=== PATIENT | female | born 1950 | race Caucasian/White ===

== ENCOUNTER 2018-01-03 12:20 | Day surgery (SDC) | payer MEDICARE, OTHER, SELFPAY ==
[2018-01-03 12:38] VITALS: BP 123/74; PULSE 105; RESP 16; TEMP 36.3; O2SAT 94; BMI 35.2
[2018-01-03 13:01] LABS: Bedside Glucose 154 mg/dL (70-110)
--- NOTE | 2018-01-03 14:37 | DCINST_ITS ---
Discharge Diet: No Restrictions Discharge Activity: Return to Normal Activity, May not drive while taking narcotic pain medications. Lifting Restrictions: no lifting with arm greater than 10 pounds for 2 weeks Call your doctor if your incision/area has: Continuous Slow Oozing, Foul Smel ling Discharge Call your doctor if you observe: Fever of 101 or Higher Additional Dressing/Incision Instructions:: Leave dressing in place. May get w et in shower. Do not soak - no tub baths/swimming Allergies/Adverse Reactions: Allergies No Known Allergies Allergy (Verified 01/02/18 10:10) Medications to take at Discharge Ascorbic Acid [Vitamin C] 1,000 mg PO DAILY 01/02/18 Cetirizine HCl [Zyrtec] 10 mg PO DAILY 01/02/18 Citalopram [Celexa] 20 mg PO DAILY 01/02/18 Cyclobenzaprine [Flexeril] 10 mg PO TID PRN PRN 01/02/18 Fluticasone 0.05% [Flonase Nasal [place]] 1 spray NASAL DAILY 01/02/18 Gabapentin [Neurontin] 300 mg PO TIDCM 01/02/18 Levothyroxine [Synthroid] 75 mcg PO DAILY 01/02/18 Metformin(XR) [Glucophage Xr] 1,000 mg PO BID 01/02/18 Mirtazapine [Remeron] 15 mg PO QHS 01/02/18 Nystatin 15 gm TP PRN PRN 01/02/18 Omeprazole 40 mg PO DAILY 01/02/18 Simvastatin [Zocor] 20 mg PO QHS 01/02/18 glipiZIDE XL [Glucotrol Xl] 20 mg PO DAILY@0800 01/02/18 Primary Care Physician: Goldy Holcomb MD [Primary Care Provider] - Test Results: Test results from this visit will be discussed in further detail at your follow- up appointment, if applicable. Please Follow Up With: Rosibel Quiroz MD - call When: to be seen in 7-10 days, please call for date and time, thank you
--- NOTE | 2018-01-03 14:38 | OP.PN_ITS ---
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 installer: NOT,JAMAR - kayla Cooper student Pre-Operative Diagnosis: metastatic gallbladder cancer, need for IV access for palliative chemotherapy Post-Operative Diagnosis: same Surgery/Procedure Performed:: placement of permanent indwelling tunnelled catheter in right internal jugular vein with subcutaneous port Description of Surgical Findings:: was able to access left subclavian vein but arbitrary location of catheter and was concerned for positioning - therefore it was removed, accessed left internal jugular vein but could not advance wire, could not access right subclavian vein, able to access right internal jugular vein without difficulty using US guidance Estimated Blood Loss: 20 ml Specimen's removed: none Type of Anesthesia:: Local MAC ASA Class: ASA3 Severe Disease - Admit VTE Documentation VTE Present on Admission: Yes VTE Mechan Device Prophylaxis: SCD's
[2018-01-03] MEDS: Cefazolin 2 GM in 0.9% Normal Saline 100 ML IV (14:40)
--- NOTE | 2018-01-03 16:01 | RAD_ITS ---
STUDY: X-RAY CHEST REASON FOR EXAM: Female, 67 years old. Post port placement TECHNIQUE: PA and lateral views of the chest. COMPARISON: None. FINDINGS: A right-sided MediPort is seen. The MediPort catheter is looped overlying the lower right cervical region with tip overlying the area of the right brachiocephalic vein. The lungs are clear and expanded. There is no demonstrated pleural abnormality. Normal size heart. Normal mediastinum and davonte. Normal visualized pulmonary arteries. Normal visualized aortic arch and descending thoracic aorta. Normal visualized thoracic spine. Normal visualized ribs, clavicles, and shoulders. There is no demonstrated abnormality of the visualized soft tissue structures of the upper abdomen. RAD/CXR for Line Placement IMPRESSION: Right-sided MediPort noted with portion of catheter looped in the lower right cervical area and tip overlying the region of the right brachiocephalic vein. There is no pneumothorax. Electronically Signed: Bonifacio Katz MD at 16:39 EDT , Service support ,
--- NOTE | 2018-01-03 16:04 | PCM.OPRPT ---
Report of Operation Date of Procedure: 01/03/18 Pre-Operative Diagnosis: metastatic gallbladder cancer, need for IV access for palliative chemotherapy Post-Operative Diagnosis: same Surgery/Procedure Performed:: placement of permanent indwelling tunnelled catheter in right internal jugular vein with subcutaneous port Description of Surgical Findings:: was able to access left subclavian vein but arbitrary location of catheter and was concerned for positioning - therefore it was removed, accessed left internal jugular vein but could not advance wire, could not access right subclavian vein, able to access right internal jugular vein without difficulty using US guidance endless track vehicle mechanic: MORGAN,JAMAR - kayla Cooper Type of Anesthesia:: Local MAC Anesthesiologist: Balbir Man Specimen's removed: none Estimated Blood Loss (mL): 20 ml Fluids Replaced: 800 ml RL Description of Procedure: After informed consent was given, the patient was brought to the operating room. Appropriate time out protocol was followed. She was then given anesthesia. The patient?s upper chest and neck were then prepped with a surgical skin preparation and sterile surgical drapes were placed. After proper landmarks were ascertained, the skin at the upper left chest area was then infiltrated with local anesthetic. A needle trocar was then inserted into the left subclavian vein and there was good aspiration of venous blood. A wire was then threaded into the needle trocar and this was visualized under fluoroscopy to ensure that the wire was in the left subclavian vein. However, the wire could not be advanced into the SVC. Therefore, under direct visualization, the wire was manipulated - it was retracted and then advanced, and then the wire could advance into the SVC. Once this was done, then the needle trocar was removed. A small skin osmin was made with an 11 blade knife at the wire entrance site. The dilator with the introducer sheath attached was then placed over the wire into the left subclavian vein via the Seldinger technique and this was visualized under fluoroscopy. The dilator and sheath were in proper position as visualized by fluoroscopy. However, the catheter could not be advanced into the subclavian properly. Therefore the entire apparatus was removed and pressure applied to the right subclavian vein entrance site. The left internal jugular vein was then attempted to be accessed. After proper landmarks were ascertained, the skin at the upper left neck area was infiltrated with local anesthetic. The US transducer probe was then brought and placed on the patient's neck to identify the internal jugular vein. It was identified. A needle trocar was then inserted into the left internal jugular vein and there was good aspiration of venous blood. A wire was then threaded into the needle trocar and this was visualized under fluoroscopy to ensure that the wire was entering the left internal jugular vein properly. Once this was done, then the needle trocar was removed. A small skin osmin was made with an 11 blade knife at the wire entrance site. The dilator with the introducer sheath attached was then placed over the wire into the left IJ vein via the Seldinger technique and this was visualized under fluoroscopy. The dilator and sheath were in proper position as visualized by fluoroscopy. The wire and dilator were then removed. The catheter was then threaded into the sheath. This was visualized under fluoroscopy. However, advancing it to the center of the chest area, revealed on fluoroscopy that the position was not normal. Therefore because of this, the entire apparatus was removed. Pressure was applied to the left neck for hemostasis. US transducer examination of this area revealed no extravasation of blood. The right subclavian vein was then attempted to be accessed. After proper landmarks were ascertained, the skin at the upper right chest area was then infiltrated with local anesthetic. A needle trocar was then inserted into the right subclavian vein and there was good aspiration of venous blood. A wire was then threaded into the needle trocar and this was visualized under fluoroscopy to ensure that the wire was in the right subclavian vein. However, under fluoroscopy, the wire could not be advanced into the SVC, despite multiple attempts at manipulation. Therefore the wire and needle trocar were withdrawn and pressure was applied to the right subclavian entrance site. The right internal jugular vein was then attempted to be accessed. After proper landmarks were ascertained, the skin at the upper right neck area was infiltrated with local anesthetic. The US transducer probe was then brought and placed on the patient's neck to identify the internal jugular vein. It was identified. A needle trocar was then inserted into the left subclavian vein and there was good aspiration of venous blood. A wire was then threaded into the needle trocar and this was visualized under fluoroscopy to ensure that the wire was in the right internal jugular vein. Once this was done, then the needle trocar was removed. A small skin osmin was made with an 11 blade knife at the wire entrance site. The dilator with the introducer sheath attached was then placed over the wire into the right IJ vein via the Seldinger technique and this was visualized under fluoroscopy. The dilator and sheath were in proper position as visualized by fluoroscopy. The wire and dilator were then removed. The catheter was then threaded into the introducer sheath and was positioned with its tip at the junction of the superior vena cava and the right atrium as visualized under fluoroscopy. The catheter was flushed with a heparin saline mixture prior to placement. A subcutaneous pocket was then created caudad to the catheter insertion site. A transverse skin incision was made after the skin and subcutaneous tissues were infiltrated with local anesthetic. Blunt dissection was then used to create a space large enough for placement of the subcutaneous port. Hemostasis was carefully controlled with electrocautery. The port was sutured to the subcutaneous fascia using vicryl suture at three sites. The catheter was then tunneled into the subcutaneous pocket. The excess catheter was transected. The catheter was then attached to the subcutaneous port using it director?s guidelines. The port was then placed in the subcutaneous pocket and the sutures were ligated. The subdermal incisional sites were reapproximated with interrupted vicryl suture. The skin was reapproximated with monocryl suture in a subcuticular fashion. Cavilon and steristrips were used for reinforcement of the skin closure and a sterile opsite dressing was applied. The patient was brought to the Recovery Room in stable condition. Grafts/Implants Used: PowerPort MRI implantable lot [id number], expiration date 2019-08-23 - Complications none noted - Admit VTE Documentation VTE Present on Admission: Yes VTE Mechan Device Prophylaxis: SCD's
--- NOTE | 2018-01-03 16:09 | OP.PCM_ITS ---
Report of Operation Date of Procedure: 01/03/18 Pre-Operative Diagnosis: metastatic gallbladder cancer, need for IV access for palliative chemotherapy Post-Operative Diagnosis: same Surgery/Procedure Performed:: placement of permanent indwelling tunnelled catheter in right internal jugular vein with subcutaneous port Description of Surgical Findings:: was able to access left subclavian vein but arbitrary location of catheter and was concerned for positioning - therefore it was removed, accessed left internal jugular vein but could not advance wire, could not access right subclavian vein, able to access right internal jugular vein without difficulty using US guidance software client architect: MORGAN,JAMAR - kayla Cooper Type of Anesthesia:: Local MAC Anesthesiologist: Balbir Man Specimen's removed: none Estimated Blood Loss (mL): 20 ml Fluids Replaced: 800 ml RL Description of Procedure: After informed consent was given, the patient was brought to the operating room. Appropriate time out protocol was followed. She was then given anesthesia. The patient?s upper chest and neck were then prepped with a surgical skin preparation and sterile surgical drapes were placed. After proper landmarks were ascertained, the skin at the upper left chest area w as then infiltrated with local anesthetic. A needle trocar was then inserted into the left subclavian vein and there was good aspiration of venous blood. A wire was then threaded into the needle trocar and this was visualized under fluoroscopy to ensure that the wire was in the left subclavian vein. However, the wire could not be advanced into the SVC. Therefore, under direct visualization, the wire was manipulated - it was retracted and then advanced, and then the wire could advance into the SVC. Once this was done, then the needle trocar was removed. A small skin osmin was made with an 11 blade knife at the wire entrance site. The dilator with the introducer sheath attached was then placed over the wire into the left subclavian vein via the Seldinger technique and this was visualized under fluoroscopy. The dilator and sheath were in proper position as visualized by fluoroscopy. However, the catheter could not be advanced into the subclavian properly. Therefore the entire zandra aratus was removed and pressure applied to the right subclavian vein entrance site. The left internal jugular vein was then attempted to be accessed. After proper landmarks were ascertained, the skin at the upper left neck area was infiltrated with local anesthetic. The US transducer probe was then brought and placed on the patient's neck to identify the internal jugular vein. It was identified. A needle trocar was then inserted into the left internal jugular vein and there was good aspiration of venous blood. A wire was then threaded into the needle trocar and this was visualized under fluoroscopy to ensure that the wire was entering the left internal jugular vein properly. Once this was done, then the needle trocar was removed. A small skin osmin was made with an 11 blade knife at the wire entrance site. The dilator with the introducer sheath attached was then placed over the wire into the left IJ vein via the Seldinger technique and this was visualized under fluoroscopy. The dilator and sheath were in proper position as visualized by fluoroscopy. The wire and dilator were then removed. The catheter was then threaded into the sheath. This was visualized under fluoroscopy. However, advancing it to the center of the chest area, revealed on fluoroscopy that the position was not normal. Therefore because of this, the entire apparatus was removed. Pressure was applied to the left neck for hemostasis. US transducer examination of this area revealed no extravasation of blood. The right subclavian vein was then attempted to be accessed. After proper landmarks were ascertained, the skin at the upper right chest area was then infiltrated with local anesthetic. A needle trocar was then inserted into the right subclavian vein and there was good aspiration of venous blood. A wire was then threaded into the needle trocar and this was visualized under fluoroscopy to ensure that the wire was in the right subclavian vein. However, under fluoroscopy, the wire could not be advanced into the SVC, despite multiple attempts at manipulation. Therefore the wire and needle trocar were withdrawn and pressure was applied to the right subclavian entrance site. The right internal jugular vein was then attempted to be accessed. After proper landmarks were ascertained, the skin at the upper right neck area was infiltrated with local anesthetic. The US transducer probe was then brought and placed on the patient's neck to identify the internal jugular vein. It was identified. A needle trocar was then inserted into the left subclavian vein and there was good aspiration of venous blood. A wire was then threaded into the needle trocar and this was visualized under fluoroscopy to ensure that the wire was in the right internal jugular vein. Once this was done, then the needle trocar was removed. A small skin osmin was made with an 11 blade knife at the wire entrance site. The dilator with the introducer sheath attached was then placed over the wire into the right IJ vein via the Seldinger technique and this was visualized under fluoroscopy. The dilator and sheath were in proper position as visualized by fluoroscopy. The wire and dilator were then removed. The catheter was then threaded into the introducer sheath and was positioned with its tip at the junction of the superior vena cava and the right atrium as visualized under fluoroscopy. The catheter was flushed with a heparin saline mixture prior to placement. A subcutaneous pocket was then created caudad to the catheter insertion site. A transverse skin incision was made after the skin and subcutaneous tissues were infiltrated with local anesthetic. Blunt dissection was then used to create a space large enough for placement of the subcutaneous port. Hemostasis was carefully controlled with electrocautery. The port was sutured to the subcutaneous fascia using vicryl suture at three sites. The catheter was then tunneled into the subcutaneous pocket. The excess catheter was transected. The catheter was then attached to the subcutaneous port using tallow pumper?s guidelines. The port was then placed in the subcutaneous pocket and the sutures were ligated. The subdermal incisional sites were reapproximated with interrupted vicryl suture. The skin was reapproximated with monocryl suture in a subcuticular fashion. Cavilon and steristrips were used for reinforcement of the skin closure and a sterile opsite dressing was applied. The patient was brought to the Recovery Room in stable condition. Grafts/Implants Used: PowerPort MRI implantable lot [id number], expiration date 2019-08-23 - Complications none noted - Admit VTE Documentation VTE Present on Admission: Yes VTE Mechan Device Prophylaxis: SCD's
[2018-01-03 16:15] VITALS: BP 102/65; BP 123/74; PULSE 114; RESP 16; TEMP 36.6; O2SAT 96
[2018-01-03 16:20] VITALS: BP 123/74; BP 93/56; PULSE 113; RESP 16; O2SAT 96
[2018-01-03 16:25] VITALS: BP 123/74; BP 99/63; PULSE 111; RESP 16; O2SAT 95
[2018-01-03 16:30] VITALS: BP 104/73; BP 123/74; PULSE 109; RESP 16; TEMP 36.8; O2SAT 94
[2018-01-03 16:54] VITALS: BP 123/74
== END 2018-01-03 17:10 | disposition home or self-care (01) ==
LOC: SDC 12:22 → AC 12:24
PROVIDERS: Family Provider Family Medicine; PCP Family Medicine; Referring Provider Surgery; Visit Provider Surgery
PROC: (CPT 36563; principal; 2018-01-03 13:40)
DX: Z45.2 Encounter for adjustment and management of vascular access device (principal); C23 Malignant neoplasm of gallbladder; E66.09 Other obesity due to excess calories; Z68.35 Body mass index [BMI] 35.0-35.9, adult; E11.21 Type 2 diabetes mellitus with diabetic nephropathy; E11.42 Type 2 diabetes mellitus with diabetic polyneuropathy; E78.5 Hyperlipidemia, unspecified; I10 Essential (primary) hypertension; E03.9 Hypothyroidism, unspecified; G47.33 Obstructive sleep apnea (adult) (pediatric)
CPT/HCPCS: 36563; 71045; 77001; 82962; J7050; J7120; C1788

== ENCOUNTER 2018-02-15 12:13 | Inpatient (IN) | payer MEDICARE, OTHER, SELFPAY ==
[2018-02-15] VITALS (19 sets, daily range): BP systolic 75–131; BP diastolic 42–75; PULSE 86–118; RESP 16–30; TEMP 36.1–39.8; O2SAT 88–98; BMI 33.0; BMI 32.1
--- NOTE | 2018-02-15 12:37 | EKG12_ITS ---
Test Reason : WEAKNESS Blood Pressure : / mmHG Vent. Rate : 113 BPM Atrial Rate : 113 BPM P-R Int : 096 ms QRS Dur : 068 ms QT Int : 350 ms P-R-T Axes : 003 -03 050 degrees QTc Int : 480 ms Sinus tachycardia with short AK Nonspecific ST abnormality Abnormal ECG Confirmed by JAJA CAMARILLO, STACEY ([id number]), graphics editor CAROL DOWLING ([id number]) on 02/17/2018 2:14:38 PM Referred By: DORIS Confirmed By:STACEY WILKINSON MD
--- NOTE | 2018-02-15 12:50 | RAD_ITS ---
STUDY: X-RAY CHEST REASON FOR EXAM: Female, 68 years old. Tachypnea and weakness. TECHNIQUE: Single AP portable view of the chest. COMPARISON: 01/03/2018. FINDINGS: There is a right-sided Port-A-Cath in stable position. There are hypoventilatory changes. There are prominent markings bilaterally which could reflect pulmonary venous congestion. No focal infiltrate is seen. There is no demonstrated pleural abnormality. There is borderline cardiomegaly. Normal mediastinum and davonte. Normal visualized pulmonary arteries. There is atherosclerotic tortuosity of the aortic arch and descending thoracic aorta. The thoracic spine is obscured. Normal visualized ribs, clavicles, and shoulders. There is no demonstrated abnormality of the visualized soft tissue structures of the upper abdomen. RAD/Chest 1 View (Portable) IMPRESSION: Prominent markings which could be due to pulmonary venous congestion. Hypoventilatory changes. Electronically Signed: Kanu Martinez MD at 13:20 EST Tel , Service support ,
[2018-02-15 13:07] LABS: Absolute Lymphocyte Count 0.25 X10^3/ul (0.83-4.51); Hematocrit 32.5 % (37-47); Hemoglobin 10.6 g/dl (12.0-15.0); Lymphocyte # 0.25 X10^3/ul (4.0); Lymphocyte % 18.5 % (19-41); Mean Corp Hgb Conc 32.6 g/gl (32-36); Mean Corpuscular Hgb 28.5 pg (27.0-32.0); Mean Corpuscular Volume 87.4 fL (81-99); Mean Platelet Vol. 10.1 fl (6.2-12.0); Monocyte# 0.07 X10^3/uL; Monocyte% 5.2 % (0-10); Neutrophil # 1.02 X10^3/uL (2.7-7.7); Neutrophil % 75.6 % (47-70); Platelet Count 117 K/mm3 (150-450); RBC Distribution Width CV 17.9 % (11.6-14.6); RBC Distribution Width SD 56.6 fl (35.1-43.9); Red Blood Count 3.72 M/mm3 (4.2-5.4)
[2018-02-15 13:09] LABS: Differential Indicated SCAN CRITERIA MET; POSITIVE COUNT YES; POSITIVE DIFFERENTIAL YES; POSITIVE MORPHOLOGY NO; White Blood Count 1.4 K/mm3 (4.4-11.0)
--- NOTE | 2018-02-15 13:09 | ED.RN ---
LAB CALLED WBC OF 1.4 AWARE
[2018-02-15 13:13] LABS: International Normalized Ratio 1.4; Prothrombin Time (Protime)PT. 17.5 SECONDS (11.7-14.9)
[2018-02-15 13:14] LABS: Partial Thromboplast Time 34.7 Seconds (24.1-36.2)
[2018-02-15] MEDS: 0.9% Normal Saline 1,000 ML IV.SOLN. 1000 ML IV (13:19)
[2018-02-15 13:21] LABS: ALB/GLOB Ratio 0.3 RATIO (0.9-2.4); AST(SGOT) 142 U/L (15-37); Alanine Aminotransfer ALT/SGPT 55 U/L (13-56); Albumin, Serum 1.5 g/dL (3.2-5.0); Alkaline Phosphatase 387 U/L (45-117); Anion Gap 14 (5-15); BUN 21 mg/dL (7-18); Calcium,Total 7.8 mg/dL (8.5-10.1); Chloride 96 mmol/L (98-107); Creatinine, Serum 0.92 mg/dL (0.55-1.02); EST Glomerular Filtration Rate 65 mL/min (>60); Est Glom Filt Rate - Afr Amer 78 mL/min (>60); Estimated Creatinine Clearance 43.55 ml/min; Globulin 5.1 g/dL (2.2-4.2); Glucose 110 mg/dL (74-106); Potassium 3.7 mmol/L (3.5-5.1); Protein, Total 6.6 g/dL (6.4-8.2); Sodium Level 131 mmol/L (136-145)
[2018-02-15 13:24] LABS: Mucous, Urine 0 SEEN /hpf (<or=2+); Red Blood Cells-Urine 0 SEEN /hpf (0-5)
[2018-02-15 13:26] LABS: Color, Urine Yellow (Yellow); Glucose, Dipstick Normal (Normal); Ketone-Dipstick Negative (Negative); Leukocyte Esterase-Dipstick 25 /ul (Negative); Nitrite-Dipstick Negative (Negative); Occult Blood-Urine 10 /ul (Negative); Protein-Dipstick 30 mg/dl (Negative); Urine Clarity Sl. Cloudy (Clear); Urine Urobilinogen 4 mg/dl (Normal)
[2018-02-15 13:28] LABS: Differential Comment SCANNED
[2018-02-15 13:29] LABS: Urine Bilirubin Dipstick 3 mg/dL (Negative)
[2018-02-15 13:32] LABS: Lactic Acid 3.6 mmol/L (0.4-2.0)
[2018-02-15 13:34] LABS: Amorphous Sediment 1+; Bacteria RARE /hpf (None Seen); Squamous Epithelial Cells - UA 0-5 SEEN /hpf (5-10); White Blood Cells 0-5 SEEN /hpf (0-5)
--- NOTE | 2018-02-15 13:49 | CT_ITS ---
STUDY: CTA CHEST REASON FOR EXAM: Female, 68 years old. Shortness of breath, tachycardia and weakness. History of hypertension and diabetes. RADIATION DOSAGE (If Supplied By Facility): CTDIvol = ( 15.84 ) mGy, DLP = ( 562.57 ) mGycm TECHNIQUE: The examination was performed with the intravenous administration of 100mL ml of Isovue 370 contrast material. Post-processing of the angiographic images was performed, with multiplanar reformation. Individualized dose optimization techniques were used for this CT. COMPARISON: None. FINDINGS: There is limited enhancement of the main pulmonary artery and right and left pulmonary arteries. There is very limited evaluation of the bilateral peripheral pulmonary arteries due to significant artifacts. There is filling defect in the proximal right lower lobe pulmonary artery which could be due to artifact. Pulmonary embolism cannot be excluded. Small filling defects are also seen in the proximal branches of the left lower lobe pulmonary artery. There is atherosclerotic tortuosity of the aortic arch and descending thoracic aorta. There is no demonstrated aortic dissection. Normal heart and pericardium. There are multiple nodes in the anterior mediastinum and aortopulmonic window, the largest measures about 1.3 cm. Normal hilar regions. Normal visualized trachea and bronchi. The lungs are well expanded. There is prominence of the pulmonary vasculature. There are fibrotic changes in the peripheral aspect of the lungs. There are no pleural effusions. Normal chest wall structures. There are degenerative changes of thoracic spine. The visualized portions of the upper abdomen demonstrate fatty infiltration of the liver. There is a partially visualized irregular collection in the anterior segment of the right lobe of the liver measuring about 4 cm. Could represent air within the liver or partial volume of the adjacent bowel. CT scan of the abdomen is recommended. CT/CTA Chest W/WO Contrast IMPRESSION: 1. Markedly limited examination due to significant artifacts. 2. Questionable filling defects in the right lower lobe and proximal branches of the lower lobes pulmonary arteries. Pulmonary embolism cannot be entirely excluded. 3. Pulmonary venous congestion. 4. Partially visualized air collection in the right lobe of the liver which could be within the liver or partial volume of the adjacent bowel. CT scan of the abdomen is recommended. N.B. : The above information has been verbally conveyed by Kanu Martinez MD to Dr. Carlos Mattson MD, on 02/15/2018 15:33:45 (ET). Electronically Signed: Kanu Martinez MD at 15:25 EST Tel , Service support ,
--- NOTE | 2018-02-15 14:56 | ED.VISSUMM ---
- ER Visit Summary Date of Service: 02/15/18 Chief Complaint: Weakness. History of Present Illness: The patient is a 68 F who presents with weakness. She had chemotherapy 2 weeks ago for gallbladder cancer. She had chills but no reported fevers. She was hypoxic upon presentation and was placed on oxygen prior to me seeing her. She denies any abdominal pain, rash or any other symptoms. Physical Examination: Patient appears chronically ill, is awake and alert Dry mucous membranes, no obvious facial deformity No C-spine tenderness supple neck. Regular rate and rhythm without any obvious murmurs. She has a right-sided chest wall Mediport which is accessed Course lungs bilaterally speaking in full sentences does not appear in any significant respiratory distress Abdomen soft and nontender no guarding or rebound Moves all extremities without any difficulty or pain. Skin does not show any obvious rashes or lesions, no trauma. Slightly somnolent but easily arousable, she is oriented ?3 with no gross focal deficit Emergency Department Course and Treatment: Patient did not have a fever initially. She she had a negative chest x-ray, however she was tachycardic and hypoxic I sent her for a PE study. While in CT she developed a fever. I treated her with meropenem for neutropenic fever. She received IV fluids and will be admitted. Patient was discussed with oncology and the medical team. Disposition: Admit to the hospital in guarded condition Impression: Neutropenic fever Sepsis secondary to presumed pneumonia This note was generated with [employer] dictation software. It may contain incorrect words, spelling, and punctuation that were not noted in review of the chart prior to signing ED Disposition - Plan for ED Patient: Chief Complaint: Weakness Referrals: Goldy Holcomb MD [Primary Care Provider] -
--- NOTE | 2018-02-15 15:06 | PCM.HP.STD ---
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 She is currently undergoing palliative chemotherapy due to metastatic gallbladder cancer. Patient lethargic on assessment. Daughter at bedside. Daughter states patient has reported intermittent loose stools over the past week and a half with intermittent nausea. Patient denies urinary symptoms. Denies abdominal pain. Denies cough. Denies exposure to sick contacts. She reports ongoing weight loss. Patient follows with Dr. Ruiz, oncology. She has a past medical history of metastatic gallbladder cancer, type 2 diabetes mellitus, hypertension, hyperlipidemia, hypothyroidism, obstructive sleep apnea, depression, GERD. Past Medical History Past Medical History (Chronic Problems): Chronic Problems Metastasis from gallbladder cancer (Chronic) Type 2 diabetes mellitus (Chronic) Hyperlipidemia (Chronic) Hypertension (Chronic) Hypothyroidism (Chronic) MARIE (obstructive sleep apnea) (Chronic) Allergies No Known Allergies Allergy (Verified 01/02/18 10:10) Home Medications: Ambulatory Orders Medication Instructions Recorded Ascorbic Acid [Vitamin C] 1,000 mg PO DAILY 01/02/18 Cetirizine HCl [Zyrtec] 10 mg PO DAILY 01/02/18 Citalopram [Celexa] 20 mg PO DAILY 01/02/18 Fluticasone 0.05% [Flonase Nasal 1 spray NASAL DAILY 01/02/18 [place]] Gabapentin [Neurontin] 300 mg PO TIDCM 01/02/18 Levothyroxine [Synthroid] 75 mcg PO DAILY 01/02/18 Metformin(XR) [Glucophage Xr] 1,000 mg PO BID 01/02/18 Omeprazole 40 mg PO DAILY 01/02/18 glipiZIDE XL [Glucotrol Xl] 20 mg PO DAILY@0800 01/02/18 Ondansetron HCl [Zofran] 4 mg PO DAILY 02/15/18 Surgical History: appendectomy, - - Right chest port. 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 Denies: Abdominal Pain, Vomiting Genitourinary: Denies: Dysuria, Frequency, Incontinence Musculoskeletal: Denies: Joint Pain, Joint Tenderness Skin: Reports: Jaundice. Denies: Rash, Wounds Neurological: Denies: Numbness, Tingling, Focal weakness Psychiatric: Reports: Depression Hematologic/ Lymphatic: Denies: Easy Bruising, Easy Bleeding VTE Information - Inpt Only VTE Present on Admission: No VTE Mechan Device Prophylaxis: None VTE Pharm Prophylaxis ordered?: Yes - Physical Exam General: No apparent distress, Lethargic, - - Jaundice appearing. HEENT: Atraumatic, PERRLA, EOMI, Normocephalic Oral: Dry Mucosa Neck: Supple, No JVD, Negative Carotid Bruits Lungs: Clear to auscultation, Normal air movement Cardiovascular: Regular Rhythm, Normal S1, Normal S2, No murmurs, Tachycardic Abdomen: Bowel Sounds Present, Soft, Non Tender, Non-Distended Extremities: No clubbing, No edema, Capillary Refill Less than 3 Seconds Skin: No rashes, No breakdown Musculoskeletal: No Tenderness to Palpation of Joints or Extremities Neurological: Cranial nerves II-XII grossly intact, Neuro grossly intact Psych/Mental Status: Flat Affect Vital Signs Temp Pulse Resp BP Pulse Ox 102.8 F H 109 H 30 H 120/72 96 02/15/18 15:00 02/15/18 15:00 02/15/18 15:00 02/15/18 15:00 02/15/18 15:00 Oxygen Flow Rate (L/min) 2 Oxygen Delivery Method Nasal Cannula Weight: 174 lb 13.225 oz Body Mass Index (BMI) 33.0 Laboratory Tests Past 24 Hrs 02/15/18 02/15/18 02/15/18 12:55 12:55 12:55 WBC 1.4 L* RBC 3.72 L Hgb 10.6 L Hct 32.5 L MCV 87.4 MCH 28.5 MCHC 32.6 RDW 17.9 H RDW Differential 56.6 H Plt Count 117 L MPV 10.1 Immature Gran % (Auto) 0.700 Neut % (Auto) 75.6 H Lymph % (Auto) 18.5 L [place] % (Auto) 5.2 Eos % (Auto) 0.0 Baso % (Auto) 0.0 Absolute Neuts (auto) 1.0 L Absolute Lymphs (auto) 0.25 L Total Counted Not Reportable Differential Comment SCANNED Diff Path Review July foll PT 17.5 H INR 1.4 APTT 34.7 Sodium 131 L Potassium 3.7 Chloride 96 L Carbon Dioxide 21.0 Anion Gap 14 BUN 21 H Creatinine 0.92 Estim Creat Clear Calc 43.55 Est GFR (MDRD) Af Amer 78 Est GFR (MDRD) Non-Af 65 BUN/Creatinine Ratio 23.0 H Glucose 110 H Lactic Acid Calcium 7.8 L Total Bilirubin 3.80 H AST 142 H ALT 55 Alkaline Phosphatase 387 H Total Protein 6.6 Albumin 1.5 L Globulin 5.1 H Albumin/Globulin Ratio 0.3 L Urine Color Urine Clarity Urine pH Ur Specific [place] Urine Protein Urine Glucose (UA) Urine Ketones Urine Occult Blood Urine Nitrite Urine Bilirubin Urine Urobilinogen Ur Leukocyte Esterase Urine RBC Urine WBC Ur Squamous Epith Cells Amorphous Sediment Urine Bacteria Urine Mucus 02/15/18 02/15/18 12:55 13:15 WBC RBC Hgb Hct MCV MCH MCHC RDW RDW Differential Plt Count MPV Immature Gran % (Auto) Neut % (Auto) Lymph % (Auto) [place] % (Auto) Eos % (Auto) Baso % (Auto) Absolute Neuts (auto) Absolute Lymphs (auto) Total Counted Differential Comment Diff Path Review PT INR APTT Sodium Potassium Chloride Carbon Dioxide Anion Gap BUN Creatinine Estim Creat Clear Calc Est GFR (MDRD) Af Amer Est GFR (MDRD) Non-Af BUN/Creatinine Ratio Glucose Lactic Acid 3.6 H Calcium Total Bilirubin AST ALT Alkaline Phosphatase Total Protein Albumin Globulin Albumin/Globulin Ratio Urine Color Yellow Urine Clarity Sl. Cloudy Urine pH 6.0 Ur Specific [place] 1.010 Urine Protein 30 H Urine Glucose (UA) Normal Urine Ketones Negative Urine Occult Blood 10 H Urine Nitrite Negative Urine Bilirubin 3 H Urine Urobilinogen 4 H Ur Leukocyte Esterase 25 H Urine RBC 0 SEEN Urine WBC 0-5 SEEN Ur Squamous Epith Cells 0-5 SEEN Amorphous Sediment 1+ Urine Bacteria RARE Urine Mucus 0 SEEN Assessment/Plan 1. Neutropenic fever, etiology unclear- UA unremarkable. CXR without evidence of infiltrate. CT chest shows air collection in the right lobe of the liver, pulmonary embolism cannot be excluded. Dr. Nascimento consulted, oncology. Will begin granix daily until WBC improves. IV meropenem empirically. Obtain CT of abdomen. 2. Lactic acidosis-3.6 on admission. IVF per protocol. No clear source of infectious etiology. Repeat lactic acid. 3. Questionable PE? CT of chest shows questionable filling defects in the right lower lobe and proximal branches of the lower lobes pulmonary arteries, pulmonary embolism cannot be entirely excluded. Begin therapeutic Lovenox. Request additional read of CT of chest. 4. Metastatic gallbladder cancer-undergoing palliative chemotherapy. Follows with Dr. Ruiz. 5. Type 2 diabetes mellitus- continue glipizide, hold metformin. Accucheck ACHS with SSI. 6. Hypertension- no longer on regimen. 7. Hyperlipidemia- no longer on statin. 8. Hypothyroidism- continue Synthroid regimen. 9. Obstructive sleep apnea 10. Depression-continue home Celexa regimen. 11. GERD- continue PPI. DVT prophylaxis- Lovenox sc. This patient was seen by JOSE ARMANDO Dobbins under the supervision of Dr. Fong.
--- NOTE | 2018-02-15 15:10 | HP.PCM_ITS ---
Addendum entered and electronically signed by JOSE ARMANDO Dobbins 02/15/18 17:36: Code Visit Over-read on CT chest reported to be negative for PE. MERY Mcdaniels. 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 She is currently undergoing palliative chemotherapy due to metastatic gallbladder cancer. Patient lethargic on assessment. Daughter at bedside. Daughter states patient has reported intermittent loose stools over the past week and a half with intermittent nausea. Patient denies urinary symptoms. Denies abdominal pain. Denies cough. Denies exposure to sick contacts. She reports ongoing weight loss. Patient follows with Dr. Ruiz, oncology. She has a past medical history of metastatic gallbladder cancer, type 2 diabetes mellitus, hypertension, hyperlipidemia, hypothyroidism, obstructive sleep apnea, depression, GERD. Past Medical History Past Medical History (Chronic Problems): Chronic Problems Metastasis from gallbladder cancer (Chronic) Type 2 diabetes mellitus (Chronic) Hyperlipidemia (Chronic) Hypertension (Chronic) Hypothyroidism (Chronic) MARIE (obstructive sleep apnea) (Chronic) Allergies No Known Allergies Allergy (Verified 01/02/18 10:10) Home Medications: Ambulatory Orders Medication Instructions Recorded Ascorbic Acid [Vitamin C] 1,000 mg PO DAILY 01/02/18 Cetirizine HCl [Zyrtec] 10 mg PO DAILY 01/02/18 Citalopram [Celexa] 20 mg PO DAILY 01/02/18 Fluticasone 0.05% [Flonase Nasal 1 spray NASAL DAILY 01/02/18 [place]] Gabapentin [Neurontin] 300 mg PO TIDCM 01/02/18 Levothyroxine [Synthroid] 75 mcg PO DAILY 01/02/18 Metformin(XR) [Glucophage Xr] 1,000 mg PO BID 01/02/18 Omeprazole 40 mg PO DAILY 01/02/18 glipiZIDE XL [Glucotrol Xl] 20 mg PO DAILY@0800 01/02/18 Ondansetron HCl [Zofran] 4 mg PO DAILY 02/15/18 Surgical History: appendectomy, - - Right chest port. 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 Denies: Abdominal Pain, Vomiting Genitourinary: Denies: Dysuria, Frequency, Incontinence Musculoskeletal: Denies: Joint Pain, Joint Tenderness Skin: Reports: Jaundice. Denies: Rash, Wounds Neurological: Denies: Numbness, Tingling, Focal weakness Psychiatric: Reports: Depression Hematologic/ Lymphatic: Denies: Easy Bruising, Easy Bleeding VTE Information - Inpt Only VTE Present on Admission: No VTE Mechan Device Prophylaxis: None VTE Pharm Prophylaxis ordered?: Yes - Physical Exam General: No apparent distress, Lethargic, - - Jaundice appearing. HEENT: Atraumatic, PERRLA, EOMI, Normocephalic Oral: Dry Mucosa Neck: Supple, No JVD, Negative Carotid Bruits Lungs: Clear to auscultation, Normal air movement Cardiovascular: Regular Rhythm, Normal S1, Normal S2, No murmurs, Tachycardic Abdomen: Bowel Sounds Present, Soft, Non Tender, Non-Distended Extremities: No clubbing, No edema, Capillary Refill Less than 3 Seconds Skin: No rashes, No breakdown Musculoskeletal: No Tenderness to Palpation of Joints or Extremities Neurological: Cranial nerves II-XII grossly intact, Neuro grossly intact Psych/Mental Status: Flat Affect Vital Signs Temp Pulse Resp BP Pulse Ox 102.8 F H 109 H 30 H 120/72 96 02/15/18 15:00 02/15/18 15:00 02/15/18 15:00 02/15/18 15:00 02/15/18 15:00 Oxygen Flow Rate (L/min) 2 Oxygen Delivery Method Nasal Cannula Weight: 174 lb 13.225 oz Body Mass Index (BMI) 33.0 Laboratory Tests Past 24 Hrs 11/24/18 11/24/18 11/24/18 12:55 12:55 12:55 WBC 1.4 L* RBC 3.72 L Hgb 10.6 L Hct 32.5 L MCV 87.4 MCH 28.5 MCHC 32.6 RDW 17.9 H RDW Differential 56.6 H Plt Count 117 L MPV 10.1 Immature Gran % (Auto) 0.700 Neut % (Auto) 75.6 H Lymph % (Auto) 18.5 L [place] % (Auto) 5.2 Eos % (Auto) 0.0 Baso % (Auto) 0.0 Absolute Neuts (auto) 1.0 L Absolute Lymphs (auto) 0.25 L Total Counted Not Reportable Differential Comment SCANNED Diff Path Review July foll PT 17.5 H INR 1.4 APTT 34.7 Sodium 131 L Potassium 3.7 Chloride 96 L Carbon Dioxide 21.0 Anion Gap 14 BUN 21 H Creatinine 0.92 Estim Creat Clear Calc 43.55 Est GFR (MDRD) Af Amer 78 Est GFR (MDRD) Non-Af 65 BUN/Creatinine Ratio 23.0 H Glucose 110 H Lactic Acid Calcium 7.8 L Total Bilirubin 3.80 H AST 142 H ALT 55 Alkaline Phosphatase 387 H Total Protein 6.6 Albumin 1.5 L Globulin 5.1 H Albumin/Globulin Ratio 0.3 L Urine Color Urine Clarity Urine pH Ur Specific [place] Urine Protein Urine Glucose (UA) Urine Ketones Urine Occult Blood Urine Nitrite Urine Bilirubin Urine Urobilinogen Ur Leukocyte Esterase Urine RBC Urine WBC Ur Squamous Epith Cells Amorphous Sediment Urine Bacteria Urine Mucus 02/15/18 02/15/18 12:55 13:15 WBC RBC Hgb Hct MCV MCH MCHC RDW RDW Differential Plt Count MPV Immature Gran % (Auto) Neut % (Auto) Lymph % (Auto) [place] % (Auto) Eos % (Auto) Baso % (Auto) Absolute Neuts (auto) Absolute Lymphs (auto) Total Counted Differential Comment Diff Path Review PT INR APTT Sodium Potassium Chloride Carbon Dioxide Anion Gap BUN Creatinine Estim Creat Clear Calc Est GFR (MDRD) Af Amer Est GFR (MDRD) Non-Af BUN/Creatinine Ratio Glucose Lactic Acid 3.6 H Calcium Total Bilirubin AST ALT Alkaline Phosphatase Total Protein Albumin Globulin Albumin/Globulin Ratio Urine Color Yellow Urine Clarity Sl. Cloudy Urine pH 6.0 Ur Specific [place] 1.010 Urine Protein 30 H Urine Glucose (UA) Normal Urine Ketones Negative Urine Occult Blood 10 H Urine Nitrite Negative Urine Bilirubin 3 H Urine Urobilinogen 4 H Ur Leukocyte Esterase 25 H Urine RBC 0 SEEN Urine WBC 0-5 SEEN Ur Squamous Epith Cells 0-5 SEEN Amorphous Sediment 1+ Urine Bacteria RARE Urine Mucus 0 SEEN Assessment/Plan 1. Neutropenic fever, etiology unclear- UA unremarkable. CXR without evidence of infiltrate. CT chest shows air collection in the right lobe of the liver, pulmonary embolism cannot be excluded. Dr. Nascimento consulted, oncology. Will begin granix daily until WBC improves. IV meropenem empirically. Obtain CT of abdomen. 2. Lactic acidosis-3.6 on admission. IVF per protocol. No clear source of infectious etiology. Repeat lactic acid. 3. Questionable PE? CT of chest shows questionable filling defects in the right lower lobe and proximal branches of the lower lobes pulmonary arteries, pulmonary embolism cannot be entirely excluded. Begin therapeutic Lovenox. Request additional read of CT of chest. 4. Metastatic gallbladder cancer-undergoing palliative chemotherapy. Follows with Dr. Ruiz. 5. Type 2 diabetes mellitus- continue glipizide, hold metformin. Accucheck ACHS with SSI. 6. Hypertension- no longer on regimen. 7. Hyperlipidemia- no longer on statin. 8. Hypothyroidism- continue Synthroid regimen. 9. Obstructive sleep apnea 10. Depression-continue home Celexa regimen. 11. GERD- continue PPI. DVT prophylaxis- Lovenox sc. This patient was seen by JOSE ARMANDO Dobbins under the supervision of Dr. Fong.
--- NOTE | 2018-02-15 15:13 | NURSING ---
MED SURG TERELETSKY SEPSIS, NEUTROPENIC FEVER
--- NOTE | 2018-02-15 15:39 | CT_ITS ---
STUDY: CT ABDOMEN AND PELVIS WITHOUT CONTRAST REASON FOR EXAM: Female, 68 years old. Abdominal pain. Weakness sepsis lethargy. Gas in the abdomen based on prior CT chest. History of gallbladder cancer. RADIATION DOSAGE (If Supplied By Facility): CTDIvol = ( 10.77 ) mGy, DLP = ( 578.37 ) mGycm TECHNIQUE: Transaxial images were obtained from the dome of the diaphragm to the symphysis pubis without oral contrast, and without intravenous contrast. Sagittal and coronal images were reconstructed. Individualized dose optimization techniques were used for this CT. COMPARISON: CTA chest 02/15/2018. FINDINGS: Moderate fibrotic changes are noted in the lung bases. There is decreased attenuation of the liver consistent with steatosis. No focal hepatic lesion is seen. There is non-visualization of the gallbladder, which may be secondary to either contraction or a prior cholecystectomy. Gas is identified in the gallbladder fossa. If the patient has had recent surgery, findings are compatible with postsurgical changes. Otherwise, this is suspicious for contained perforation from the hepatic flexure. There is significant hypodensity in the pancreatic head. This may represent a markedly dilated common duct, versus mass or collection. Normal spleen. Normal bilateral adrenal glands. The kidneys are unremarkable. There is retained contrast in the collecting systems from prior CT angiogram. The aorta is normal in caliber, with mild atherosclerotic calcification. There is no evidence of bowel obstruction or inflammatory change. Diverticulosis is noted, with no acute diverticulitis. There is no obvious mass. However, the possibility of hepatic flexure malignancy cannot be excluded on this study. There is no free fluid. The bladder is catheterized and decompressed. The uterus is atrophic. Normal abdominal wall. Normal osseous structures. CT/Abdomen/Pelvis without Cont IMPRESSION: 1. Gas in the gallbladder fossa. In the absence of recent surgery, the finding is suspicious for contained perforation of the hepatic flexure, with probable abscess in the gallbladder fossa. Underlying malignancy cannot be excluded, and may be secondary to colon primary versus extension of gallbladder carcinoma to the colon. 2. Hypodensity in the pancreatic head may represent markedly dilated distal common duct, mass or abscess/pancreatitis. Consider nonemergent contrast enhanced CT abdomen or MRCP for further evaluation of the pancreas. N.B. : The above information has been verbally conveyed by Araceli Ross MD to Concepcion Patel RN, RN, on 02/15/2018 17:10:59 (ET). Electronically Signed: Araceli Ross MD at 16:54 EST Tel , Service support ,
[2018-02-15] MEDS: Acetaminophen 500 MG Tablet 1000 MG PO (16:03)
[2018-02-15 16:59] LABS: Reflex Lactate? Y
[2018-02-15] MEDS: Dextrose 50%-Water 25 GM/50 ML DISP.SYRIN IV (17:36)
[2018-02-15] MEDS: TBO-FILGRASTIM 480 MCG/0.8 ML ML SC (17:39)
[2018-02-15] MEDS: Dext 5%-0.45% NS 1,000 ML 150 ML IV (17:45)
[2018-02-15 18:00] LABS: Lactic Acid 3.2 mmol/L (0.4-2.0)
[2018-02-15] MEDS: 0.9% Normal Saline 1,000 ML 999 ML IV ×2 (18:00→19:01)
--- NOTE | 2018-02-15 18:22 | NURSING ---
upon admission to unit, pt very lethargic but able to respond to verbal stimuli. daughter and sister at bedside to assist with admission. initial blood glucose at 1733 registered 28. 1 amp of D50 given at 1736 and recheck at 1747 showed blood glucose 147. new orders for D5 0.45NS and BGT q1h x4. vital signs rechecked shortly after admission and BP dropped to 70s/40s. new orders for 2L NS bolus. this is running through R chest port and the D5 0.45NS is running through LAC peripheral IV site. urgent lactic acid result called of 3.4. notified urgent abd CT results called from Dr Ross. notified and new consult for Dr Quiroz who examined CT scans and determined there is no change from previous scan in November.
[2018-02-15 18:41] LABS: Bedside Glucose 117 mg/dL (70-110)
[2018-02-15 20:55] LABS: Bedside Glucose 76 mg/dL (70-110)
[2018-02-15 20:55] LABS: Bedside Glucose 77 mg/dL (70-110)
--- NOTE | 2018-02-15 21:07 | NURSING ---
Had a discussion with pt's list POAs (daughter Ladonna and sister Danna) about their understanding of discussion with Dr in regards to pt's prognosis and DNRCC-A status. Family did not understand the grave prognosis of pt and were of the understanding pt would be resuscitated. Explained DNRCC-A meaning and family expressed they were wanting to discuss with the Dr. Dr Garcia contacted and visiting with family at this time.
[2018-02-15 21:10] LABS: Reflex Lactate? Y
--- NOTE | 2018-02-15 21:39 | CCHN_ITS ---
Hospitalist Note Family Meeting w/ Advanced Care Planning: Family requested to discuss patient status. Met with patient and daughter as well as siblings. Patient status noted, very ill, may possibly pass in the next 24-48 hours, BP remains low, remains encephalopathic. Discussed CODE status at length including difference between FULL code, DNR-CCA and DNR-CC status. Following discussions about the differences in these status, requested DNR-CCA, no intubation status with avoidance of any aggressive interventions, including pressor therapy or central line placement. If patient continues to do poorly family may consider as discussed involvement of hospice team with transition to DNR-CC status. Recommended that family remain overnight. Living wi ll and HCPOA in place, performed they noted once patient cancer diagnosis revealed. Advanced Care Planning Face to Face Time: 20 minutes. Code Visit Procedures: 69683 Advncd Care Plan 30 Min
[2018-02-15] MEDS: 0.9% NaCl VAD Flush 10 ML IV (21:50)
[2018-02-15 22:00] LABS: Bedside Glucose 93 mg/dL (70-110)
[2018-02-15 22:27] LABS: Lactic Acid 3.3 mmol/L (0.4-2.0)
[2018-02-16] VITALS (12 sets, daily range): BP systolic 87–126; BP diastolic 50–101; PULSE 79–88; RESP 18–24; TEMP 35.6–36.7; O2SAT 93–99
[2018-02-16] MEDS: Dext 5%-0.45% NS 1,000 ML 150 ML IV ×2 (00:39→10:12)
[2018-02-16] MEDS: Levothyroxine 75 MCG Tablet PO (06:21)
[2018-02-16] MEDS: Insulin Lispro 100 UNIT/ML INSULN.PEN SC ×3 (06:30→22:41)
[2018-02-16 06:31] LABS: Bedside Glucose 160 mg/dL (70-110)
--- NOTE | 2018-02-16 06:59 | PCM.CONS.B ---
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 Ruiz. Blood work in October showed elevated liver enzymes. An US of the liver showed a thickened gallbladder and subsequently an MRI of the abdomen 11/2017 suggested a gallbladder cancer with significant regional LAD. She was seen by Dr. Nava and was deemed not to be a surgical candidate. ?She did not have symptoms related to the cancer. ?But the overall she had some decreased appetite and about 20 pound weight loss since earlier 2017. ? She underwent ERCP and CT needle biopsy of the louann hepatis mass in the abdomen 12/13/2017. 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 CT also confirmed tumor involving the parenchymal liver along with adenopathy. Has been receiving treatment with FOLFOX. Patient has been getting progressively weaker over the last week or so. This is been characterized by her stumbling and falling quite a bit at home. She had been living alone. She had not had fever until she came to the emergency room yesterday. She was brought in mainly because of the weakness. She denies dizziness and lightheadedness when standing. She simply feels a lot of malaise and asthenia. She has not been coughing. She has no chest pain or shortness of breath at rest. No wheezing or hemoptysis. She had one episode of vomiting last week. She denies nausea currently. No reflux symptoms. She has generalized abdominal pain which is worse in the right upper quadrant and epigastric area. No episodes of jaundice. She has been having watery/loose stools most days over the last 2 weeks. She is also felt an exacerbation of baseline neuropathy particularly in the hands. Allergies No Known Allergies Allergy (Verified 01/02/18 10:10) Current Medications Citalopram Hydrobromide (Celexa) 20 mg PO DAILY SHAYY Dextrose (D50w Syringe) 0 gm IV X1 PRN; Protocol PRN Reason: Hypoglycemia Last Admin: 02/15/18 17:36 Dose: 25 gm Gabapentin (Neurontin) 300 mg PO TIDCM SHAYY Last Admin: 02/15/18 17:38 Dose: Not Given Glucagon () 1 mg IM .X1 PRN PRN Reason: Hypoglycemia Heparin Sodium (Beef Lung) () 50 units IV UD PRN PRN Reason: HEPARIN FLUSH Meropenem 1 gm/ Sodium (Chloride) 120 mls @ 33 mls/hr IV Q12 [facility] Last Admin: 02/15/18 21:44 Dose: 33 mls/hr Dextrose/Sodium Chloride () 1,000 mls @ 150 mls/hr IV .Q6H40M [facility] Last Admin: 02/16/18 00:39 Dose: 150 mls/hr Insulin Human Lispro (Humalog Kwikpen (Bkc)) 0 unit SC ACHS [facility]; Protocol Last Admin: 02/16/18 06:30 Dose: 1 unit Levothyroxine Sodium (Synthroid) 75 mcg PO DAILY@0600 [facility] Last Admin: 02/16/18 06:21 Dose: 75 mcg Ondansetron HCl (Zofran) 4 mg IV Q8H PRN PRN PRN Reason: Nausea Ondansetron HCl (Zofran Odt) 4 mg PO DAILY SHAYY Pantoprazole Sodium (Protonix) 40 mg PO DAILY [facility] Sodium Chloride () 10 ml IV UD PRN PRN Reason: VAD FLUSH Last Admin: 02/15/18 21:50 Dose: 10 ml Tbo-Filgrastim (Granix) 480 mcg SC X1 ONE Stop: 02/16/18 10:01 Problem List 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 Very rare EtOH prior to diagnosis cancer. ROS: Constitutional: See above. Neuro: Denies SHELDON, recent changes in vision, hearing. HEENT: Denies sinus pain or pressure. Denies nasal discharge. Denies recent sore throat. Resp: See above. CVS: Denies exertional chest pain, PND, orthopnea. GI: No melena or hematochezia. : Denies dysuria, frequency and gross hematuria. Endo: Denies hot flashes. Heat and cold intolerance. Musculoskeletal: Denies bone, back, joint and muscular pain. Heme: Denies episodes of significant bleeding. Psych: Mood has been depressed. PHYSICAL EXAM: Vitals: Vital Signs Temp 97.4 F L 02/16/18 03:55 Pulse 79 02/16/18 07:39 Resp 20 H 11/25/18 03:55 BP 124/85 H 02/16/18 03:55 Pulse Ox 95 02/16/18 07:57 Intake & Output 02/14/18 02/15/18 02/16/18 23:59 23:59 23:59 Intake Total 3023 / 3023 1130 / 1130 Output Total 325 / 325 450 / 450 Balance 2698 / 2698 680 / 680 Weight: 77.065 kg Intake: IV fluid/meds 3023 / 3023 1130 / 1130 Output: Urine 325 / 325 450 / 450 GENERAL: Fatigued appearing. No acute distress. EYES: Sclerae are anicteric bilaterally. ENT: Oral mucosa is unremarkable. No sign of thrush or mucositis. No evidence of gingival or mucosal bleeding. NECK: Supple. LYMPHATIC: No palpable peripheral adenopathy. RESPIRATORY: Inspiratory breath sounds are of diminished intensity in all pineda. CARDIOVASCULAR: Rhythm is regular. ABDOMEN: The abdomen is nondistended. Quiet bowel sounds. Diffusely tender but particularly tender in the right upper quadrant and epigastrium. Extremities: Mild pitting edema of both lower extremities. SKIN: No jaundice or rash. ASSESSMENT/PLAN: 1) Neutropenic fever. Assessment: -Likely biliary source with subacute presentation. -Also having worsening neuropathy and asthenia from chemotherapy. -Fever resolving. -ANC responding to neupogen. Plan: -Continue broad-spectrum antibiotics. -Awaiting blood cultures. -IV fluids. 2) Local regionally advanced cholangiocarcinoma. Assessment: -Not clear as to what her baseline performance status is, but appears to be worsened secondary to chemotherapy and neutropenic fever. -Patient is DNR. Plan: -No chemotherapy this upcoming week. -Dr. Ruiz will see tomorrow and address goals of care.
--- NOTE | 2018-02-16 07:03 | CON.PCM_ITS ---
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 Ruiz. Blood work in October showed elevated liver enzymes. An US of the liver showed a thickened gallbladder and subsequently an MRI of the abdomen 11/2017 suggested a gallbladder cancer with significant regional LAD. She was seen by Dr. Nava and was deemed not to be a surgical candidate. ?She did not have symptoms related to the cancer. ?But the overall she had some decreased appetite and about 20 pound weight loss since earlier 2017. ? She underwent ERCP and CT needle biopsy of the louann hepatis mass in the abdomen 12/13/2017. 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 CT also confirmed tumor involving the parenchymal liver along with adenopathy. Has been receiving treatment with FOLFOX. Patient has been getting progressively weaker over the last week or so. This is been characterized by her stumbling and falling quite a bit at home. She had been living alone. She had not had fever until she came to the emergency room yesterday. She was brought in mainly because of the weakness. She denies dizziness and lightheadedness when standing. She simply feels a lot of malaise and asthenia. She has not been coughing. She has no chest pain or shortness of breath at rest. No wheezing or hemoptysis. She had one episode of vomiting last week. She denies nausea currently. No reflux symptoms. She has generalized abdominal pain which is worse in the right upper quadrant and epigastric area. No episodes of jaundice. She has been having watery/loose stools most days over the last 2 weeks. She is also felt an exacerbation of baseline neuropathy particularly in the hands. Allergies No Known Allergies Allergy (Verified 01/02/18 10:10) Current Medications Citalopram Hydrobromide (Celexa) 20 mg PO DAILY SHAYY Dextrose (D50w Syringe) 0 gm IV X1 PRN; Protocol PRN Reason: Hypoglycemia Last Admin: 02/15/18 17:36 Dose: 25 gm Gabapentin (Neurontin) 300 mg PO TIDCM [facility] Last Admin: 02/15/18 17:38 Dose: Not Given Glucagon () 1 mg IM .X1 PRN PRN Reason: Hypoglycemia Heparin Sodium (Beef Lung) () 50 units IV UD PRN PRN Reason: HEPARIN FLUSH Meropenem 1 gm/ Sodium (Chloride) 120 mls @ 33 mls/hr IV Q12 [facility] Last Admin: 02/15/18 21:44 Dose: 33 mls/hr Dextrose/Sodium Chloride () 1,000 mls @ 150 mls/hr IV .Q6H40M [facility] Last Admin: 02/16/18 00:39 Dose: 150 mls/hr Insulin Human Lispro (Humalog Kwikpen (Bkc)) 0 unit SC ACHS [facility]; Protocol Last Admin: 02/16/18 06:30 Dose: 1 unit Levothyroxine Sodium (Synthroid) 75 mcg PO DAILY@0600 [facility] Last Admin: 02/16/18 06:21 Dose: 75 mcg Ondansetron HCl (Zofran) 4 mg IV Q8H PRN PRN PRN Reason: Nausea Ondansetron HCl (Zofran Odt) 4 mg PO DAILY SH[facility] Pantoprazole Sodium (Protonix) 40 mg PO DAILY [facility] Sodium Chloride () 10 ml IV UD PRN PRN Reason: VAD FLUSH Last Admin: 02/15/18 21:50 Dose: 10 ml Tbo-Filgrastim (Granix) 480 mcg SC X1 ONE Stop: 02/16/18 10:01 Problem List 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 Very rare EtOH prior to diagnosis cancer. ROS: Constitutional: See above. Neuro: Denies SHELDON, recent changes in vision, hearing. HEENT: Denies sinus pain or pressure. Denies nasal discharge. Denies recent sore throat. Resp: See above. CVS: Denies exertional chest pain, PND, orthopnea. GI: No melena or hematochezia. : Denies dysuria, frequency and gross hematuria. Endo: Denies hot flashes. Heat and cold intolerance. Musculoskeletal: Denies bone, back, joint and muscular pain. Heme: Denies episodes of significant bleeding. Psych: Mood has been depressed. PHYSICAL EXAM: Vitals: Vital Signs Temp 97.4 F L 02/16/18 03:55 Pulse 79 02/16/18 07:39 Resp 20 H 11/25/18 03:55 BP 124/85 H 02/16/18 03:55 Pulse Ox 95 02/16/18 07:57 Intake & Output 02/14/18 02/15/18 02/16/18 23:59 23:59 23:59 Intake Total 3023 / 3023 1130 / 1130 Output Total 325 / 325 450 / 450 Balance 2698 / 2698 680 / 680 Weight: 77.065 kg Intake: IV fluid/meds 3023 / 3023 1130 / 1130 Output: Urine 325 / 325 450 / 450 GENERAL: Fatigued appearing. No acute distress. EYES: Sclerae are anicteric bilaterally. ENT: Oral mucosa is unremarkable. No sign of thrush or mucositis. No evidence of gingival or mucosal bleeding. NECK: Supple. LYMPHATIC: No palpable peripheral adenopathy. RESPIRATORY: Inspiratory breath sounds are of diminished intensity in all pineda. CARDIOVASCULAR: Rhythm is regular. ABDOMEN: The abdomen is nondistended. Quiet bowel sounds. Diffusely tender but particularly tender in the right upper quadrant and epigastrium. Extremities: Mild pitting edema of both lower extremities. SKIN: No jaundice or rash. ASSESSMENT/PLAN: 1) Neutropenic fever. Assessment: -Likely biliary source with subacute presentation. -Also having worsening neuropathy and asthenia from chemotherapy. -Fever resolving. -ANC responding to neupogen. Plan: -Continue broad-spectrum antibiotics. -Awaiting blood cultures. -IV fluids. 2) Local regionally advanced cholangiocarcinoma. Assessment: -Not clear as to what her baseline performance status is, but appears to be worsened secondary to chemotherapy and neutropenic fever. -Patient is DNR. Plan: -No chemotherapy this upcoming week. -Dr. Ruiz will see tomorrow and address goals of care.
[2018-02-16 07:15] LABS: Hematocrit 27.9 % (37-47); Hemoglobin 8.9 g/dl (12.0-15.0); Mean Corp Hgb Conc 31.9 g/gl (32-36); Mean Corpuscular Hgb 28.3 pg (27.0-32.0); Mean Corpuscular Volume 88.6 fL (81-99); Mean Platelet Vol. 10.8 fl (6.2-12.0); Platelet Count 69 K/mm3 (150-450); RBC Distribution Width CV 18.1 % (11.6-14.6); RBC Distribution Width SD 58.6 fl (35.1-43.9); Red Blood Count 3.15 M/mm3 (4.2-5.4); White Blood Count 2.5 K/mm3 (4.4-11.0)
[2018-02-16 07:22] LABS: Differential Indicated MANUAL DIFF; POSITIVE COUNT NO; POSITIVE DIFFERENTIAL YES; POSITIVE MORPHOLOGY YES
[2018-02-16 07:30] LABS: Lactic Acid 1.5 mmol/L (0.4-2.0)
[2018-02-16 07:38] LABS: ALB/GLOB Ratio 0.2 RATIO (0.9-2.4); AST(SGOT) 139 U/L (15-37); Alanine Aminotransfer ALT/SGPT 48 U/L (13-56); Albumin, Serum 1.1 g/dL (3.2-5.0); Alkaline Phosphatase 290 U/L (45-117); Anion Gap 9 (5-15); BUN 15 mg/dL (7-18); BUN/Creat Ratio 22.5 RATIO (10-20); Calcium,Total 6.8 mg/dL (8.5-10.1); Chloride 103 mmol/L (98-107); Creatinine, Serum 0.67 mg/dL (0.55-1.02); EST Glomerular Filtration Rate 93 mL/min (>60); Est Glom Filt Rate - Afr Amer 113 mL/min (>60); Estimated Creatinine Clearance 40.07 ml/min; Globulin 4.5 g/dL (2.2-4.2); Glucose 158 mg/dL (74-106); Potassium 3.3 mmol/L (3.5-5.1); Protein, Total 5.6 g/dL (6.4-8.2); Sodium Level 132 mmol/L (136-145)
[2018-02-16 07:43] LABS: Hypochromasia 2+; Lymphocyte 24 % (19-41); Metamyelocyte 1 % (0-1); Monocyte 13 % (0-10); Neutrophil-Band 4 % (0-5); Neutrophil-Segmented 58 % (47-70); Platelet Estimate MKD DEC (ADEQ); Total Cells Counted 100 (MANUAL DIFF)
[2018-02-16 07:44] LABS: Absolute Neutrophil Count 1.6 X10^3/uL (2.0-7.7)
[2018-02-16] MEDS: Ondansetron ODT 4 MG Tablet PO (10:13)
[2018-02-16] MEDS: Gabapentin 300 MG Capsule PO ×3 (10:13→17:08)
[2018-02-16] MEDS: Pantoprazole Sodium 40 MG Tablet PO (10:13)
[2018-02-16] MEDS: Citalopram 20 MG Tablet PO (10:13)
[2018-02-16] MEDS: TBO-FILGRASTIM 480 MCG/0.8 ML ML SC (10:21)
[2018-02-16 11:25] LABS: Bedside Glucose 128 mg/dL (70-110)
--- NOTE | 2018-02-16 13:15 | PCM.PROGNOTE ---
<Xena Bettencourt - Last Filed: 02/16/18 13:29> Patient Problems: Active and Suspected Problems Neutropenic fever (Acute) Subjective: Patient more alert this morning. Multiple family members at bedside. Patient complains of significant weakness, fatigue and feeling tired. Denies other current specific complaints. - Physical Exam General: Alert, Oriented x3, Cooperative HEENT: Atraumatic, PERRLA, EOMI, Normocephalic Oral: Dry Mucosa Neck: Supple, No JVD, Negative Carotid Bruits Lungs: Clear to auscultation, Normal air movement Cardiovascular: Regular rate, Regular Rhythm, Normal S1, Normal S2, No murmurs Abdomen: Bowel Sounds Present, Soft, Non Tender, Non-Distended Extremities: No clubbing, No cyanosis, No edema, Capillary Refill Less than 3 Seconds Skin: No rashes, No breakdown Musculoskeletal: No Tenderness to Palpation of Joints or Extremities Neurological: Cranial nerves II-XII grossly intact, Neuro grossly intact Psych/Mental Status: Normal Affect, Appropriate Vital Signs Temp Pulse Resp BP Pulse Ox 97.6 F L 80 20 H 87/54 L 99 02/16/18 12:40 02/16/18 12:40 02/16/18 12:40 02/16/18 12:40 02/16/18 12:40 Oxygen Flow Rate (L/min) 3 Oxygen Delivery Method Nasal Cannula Weight: 169 lb 14.4 oz Body Mass Index (BMI) 32.1 Intake and Output for Last 24 Hours 02/14/18 02/15/18 02/16/18 23:59 23:59 23:59 Intake Total 3023 / 3023 1880 / 1880 Output Total 325 / 325 700 / 700 Balance 2698 / 2698 1180 / 1180 Microbiology Past 72 Hours 02/15/18 12:55 Blood Culture - Preliminary Blood Culture (Wb) - Venous GNR lactose space systems operations manager 02/15/18 13:20 Blood Culture - Preliminary Blood Culture (Wb) - Anticubital Right GNR lactose space systems operations manager Laboratory Tests Past 24 Hrs 02/15/18 02/15/18 02/15/18 12:55 12:55 12:55 WBC 1.4 L* RBC Hgb Hct MCV MCH MCHC RDW RDW Differential Plt Count MPV Neut % (Auto) Absolute Neuts (auto) Absolute Lymphs (auto) Total Counted Not Reportable Neutrophils % (Manual) Band Neutrophils % Lymphocytes % (Manual) Monocytes % (Manual) Metamyelocytes % Differential Comment SCANNED Diff Path Review May foll Platelet Estimate Hypochromasia Sodium 131 L Potassium 3.7 Chloride 96 L Carbon Dioxide 21.0 Anion Gap 14 BUN 21 H Creatinine 0.92 Estim Creat Clear Calc 43.55 Est GFR (MDRD) Af Amer 78 Est GFR (MDRD) Non-Af 65 BUN/Creatinine Ratio 23.0 H Glucose 110 H Lactic Acid 3.6 H Calcium 7.8 L Total Bilirubin 3.80 H AST 142 H ALT 55 Alkaline Phosphatase 387 H Total Protein 6.6 Albumin 1.5 L Globulin 5.1 H Albumin/Globulin Ratio 0.3 L Urine Color Urine Clarity Urine pH Ur Specific [place]wood Urine Protein Urine Glucose (UA) Urine Ketones Urine Occult Blood Urine Nitrite Urine Bilirubin Urine Urobilinogen Ur Leukocyte Esterase Urine RBC Urine WBC Ur Squamous Epith Cells Amorphous Sediment Urine Bacteria Urine Mucus 02/15/18 02/15/18 02/15/18 13:15 17:05 21:30 WBC RBC Hgb Hct MCV MCH MCHC RDW RDW Differential Plt Count MPV Neut % (Auto) Absolute Neuts (auto) Absolute Lymphs (auto) Total Counted Neutrophils % (Manual) Band Neutrophils % Lymphocytes % (Manual) Monocytes % (Manual) Metamyelocytes % Differential Comment Diff Path Review Platelet Estimate Hypochromasia Sodium Potassium Chloride Carbon Dioxide Anion Gap BUN Creatinine Estim Creat Clear Calc Est GFR (MDRD) Af Amer Est GFR (MDRD) Non-Af BUN/Creatinine Ratio Glucose Lactic Acid 3.2 H 3.3 H Calcium Total Bilirubin AST ALT Alkaline Phosphatase Total Protein Albumin Globulin Albumin/Globulin Ratio Urine Color Yellow Urine Clarity Sl. Cloudy Urine pH 6.0 Ur Specific [place]wood 1.010 Urine Protein 30 H Urine Glucose (UA) Normal Urine Ketones Negative Urine Occult Blood 10 H Urine Nitrite Negative Urine Bilirubin 3 H Urine Urobilinogen 4 H Ur Leukocyte Esterase 25 H Urine RBC 0 SEEN Urine WBC 0-5 SEEN Ur Squamous Epith Cells 0-5 SEEN Amorphous Sediment 1+ Urine Bacteria RARE Urine Mucus 0 SEEN 02/16/18 02/16/18 02/16/18 06:54 06:54 06:54 WBC 2.5 L RBC 3.15 L Hgb 8.9 L Hct 27.9 L MCV 88.6 MCH 28.3 MCHC 31.9 L RDW 18.1 H RDW Differential 58.6 H Plt Count 69 L MPV 10.8 Neut % (Auto) Not Reportable Absolute Neuts (auto) 1.6 L Absolute Lymphs (auto) 0.60 L Total Counted 100 Neutrophils % (Manual) 58 Band Neutrophils % 4 Lymphocytes % (Manual) 24 Monocytes % (Manual) 13 H Metamyelocytes % 1 Differential Comment Diff Path Review May foll Platelet Estimate MKD DEC Hypochromasia 2+ Sodium 132 L Potassium 3.3 L Chloride 103 Carbon Dioxide 20.0 L Anion Gap 9 BUN 15 Creatinine 0.67 Estim Creat Clear Calc 40.07 Est GFR (MDRD) Af Amer 113 Est GFR (MDRD) Non-Af 93 BUN/Creatinine Ratio 22.5 H Glucose 158 H Lactic Acid 1.5 Calcium 6.8 L Total Bilirubin 3.30 H AST 139 H ALT 48 Alkaline Phosphatase 290 H Total Protein 5.6 L Albumin 1.1 L Globulin 4.5 H Albumin/Globulin Ratio 0.2 L Urine Color Urine Clarity Urine pH Ur Specific [place] Urine Protein Urine Glucose (UA) Urine Ketones Urine Occult Blood Urine Nitrite Urine Bilirubin Urine Urobilinogen Ur Leukocyte Esterase Urine RBC Urine WBC Ur Squamous Epith Cells Amorphous Sediment Urine Bacteria Urine Mucus POC Glucose 02/16/18 02/16/18 02/15/18 11:18 06:25 21:52 POC Glucose 128 H 160 H 93 02/15/18 02/15/18 02/15/18 20:44 19:48 18:33 POC Glucose 77 76 117 H Medical Necessity - Tobacco Use Smoking Status: Never smoker Tobacco Use: - Assessment/Plan All Active Problems Neutropenic fever (Acute) 1. Neutropenic fever, etiology unclear- UA unremarkable. CXR without evidence of infiltrate. CT chest shows air collection in the right lobe of the liver, pulmonary embolism cannot be excluded. Dr. Nascimento consulted, oncology. Patient received Granix x2, WBC improved from admission. CT of the abdomen and pelvis showed gas in the gallbladder fossa, suspicious for perforation of the hepatic flexure, probable abscess in the gallbladder fossa. Underlying malignancy cannot be excluded. This was discussed with Dr. Quiroz who reviewed prior CT of abdomen and noted no change from prior imaging. Oncology suspects biliary source of infection. Fever improved. Continue IV meropenem. Blood cultures preliminary showing GNR lactose space systems operations manager. Follow cultures. 2. Lactic acidosis-3.6 on admission. IVF per protocol. Lactic acidosis resolved. 3. PE ruled out- CT of chest showed questionable filling defects in the right lower lobe and proximal branches of the lower lobes pulmonary arteries, pulmonary embolism cannot be entirely excluded. Patient received therapeutic Lovenox x1. Additional read of CT of chest ruled out acute PE. Lovenox discontinued. 4. Acute hypoxia-unclear etiology. Imaging on admission without CHF or infiltrate. Continue supplement oxygen to maintain O2 at or above 90%. 5. Hypotension-blood pressure remains 80s systolically, has remained stable. Continue aggressive IV fluids. 6. Metastatic gallbladder cancer-undergoing palliative chemotherapy. Follows with Dr. Ruiz. 7. Type 2 diabetes mellitus- continue glipizide, hold metformin. Accucheck ACHS with SSI. 8. Hypertension- no longer on regimen. Currently hypotensive as noted above. 9. Hyperlipidemia- no longer on statin. 10. Hypothyroidism- continue Synthroid regimen. 11. Obstructive sleep apnea 12. Depression-continue home Celexa regimen. 13. GERD- continue PPI. DVT prophylaxis- Lovenox sc. CODE STATUS-DNR CCA. This patient was seen by JOSE ARMANDO Dobbins under the supervision of Dr. León. <Mayte León - Last Filed: 02/16/18 14:22> - Physical Exam Vital Signs Temp Pulse Resp BP Pulse Ox 97.6 F L 80 20 H 87/54 L 99 02/16/18 12:40 02/16/18 12:40 02/16/18 12:40 02/16/18 12:40 02/16/18 12:40 Oxygen Flow Rate (L/min) 3 Oxygen Delivery Method Nasal Cannula Weight: 169 lb 14.4 oz Body Mass Index (BMI) 32.1 Intake and Output for Last 24 Hours 02/14/18 02/15/18 02/16/18 23:59 23:59 23:59 Intake Total 3023 / 3023 1880 / 1880 Output Total 325 / 325 700 / 700 Balance 2698 / 2698 1180 / 1180 Microbiology Past 72 Hours 02/15/18 12:55 Blood Culture - Preliminary Blood Culture (Wb) - Venous GNR lactose space systems operations manager 02/15/18 13:20 Blood Culture - Preliminary Blood Culture (Wb) - Anticubital Right GNR lactose space systems operations manager Laboratory Tests Past 24 Hrs 02/15/18 02/15/1818 17:05 21:30 06:54 WBC 2.5 L RBC 3.15 L Hgb 8.9 L Hct 27.9 L MCV 88.6 MCH 28.3 MCHC 31.9 L RDW 18.1 H RDW Differential 58.6 H Plt Count 69 L MPV 10.8 Neut % (Auto) Not Reportable Absolute Neuts (auto) 1.6 L Absolute Lymphs (auto) 0.60 L Total Counted 100 Neutrophils % (Manual) 58 Band Neutrophils % 4 Lymphocytes % (Manual) 24 Monocytes % (Manual) 13 H Metamyelocytes % 1 Diff Path Review May foll Platelet Estimate MKD DEC Hypochromasia 2+ Sodium Potassium Chloride Carbon Dioxide Anion Gap BUN Creatinine Estim Creat Clear Calc Est GFR (MDRD) Af Amer Est GFR (MDRD) Non-Af BUN/Creatinine Ratio Glucose Lactic Acid 3.2 H 3.3 H Calcium Total Bilirubin AST ALT Alkaline Phosphatase Total Protein Albumin Globulin Albumin/Globulin Ratio 02/16/18 02/16/18 06:54 06:54 WBC RBC Hgb Hct MCV MCH MCHC RDW RDW Differential Plt Count MPV Neut % (Auto) Absolute Neuts (auto) Absolute Lymphs (auto) Total Counted Neutrophils % (Manual) Band Neutrophils % Lymphocytes % (Manual) Monocytes % (Manual) Metamyelocytes % Diff Path Review Platelet Estimate Hypochromasia Sodium 132 L Potassium 3.3 L Chloride 103 Carbon Dioxide 20.0 L Anion Gap 9 BUN 15 Creatinine 0.67 Estim Creat Clear Calc 40.07 Est GFR (MDRD) Af Amer 113 Est GFR (MDRD) Non-Af 93 BUN/Creatinine Ratio 22.5 H Glucose 158 H Lactic Acid 1.5 Calcium 6.8 L Total Bilirubin 3.30 H AST 139 H ALT 48 Alkaline Phosphatase 290 H Total Protein 5.6 L Albumin 1.1 L Globulin 4.5 H Albumin/Globulin Ratio 0.2 L POC Glucose 02/16/18 02/16/18 02/15/18 11:18 06:25 21:52 POC Glucose 128 H 160 H 93 02/15/18 02/15/18 02/15/18 20:44 19:48 18:33 POC Glucose 77 76 117 H Assessment/Plan Patient seen by Xena Bettencourt NP-C under my supervision Patient was admitted through the ED with a complaint of worsening generalized weakness. She was recently diagnosed with gallbladder cancer a few weeks ago and has been getting chemotherapy. She was found to be neutropenic in the ED and a chest CT was also negative for PE. She is being managed for febrile neutropenia and dehydration. He has been resuscitated with IV fluids and is on subcu Granix. Patient seen and examined today. She says she is feeling a bit better though she was still weak. She denied any fever or chills, cough or chest pain, shortness of breath or vomiting. Review of systems otherwise negative. Labs and vitals reviewed. On examination Vital Signs Height 5 ft 1 in Weight: 169 lb 14.4 oz Weight in Pounds 169.9 lbs Pulse Ox 99 Temperature 97.6 F Pulse Rate 80 Respiratory Rate 20 Blood Pressure 87/54 Blood Pressure Position Sitting General: Alert, Oriented x3, Cooperative, looks weak HEENT: Atraumatic, PERRLA, EOMI, Normocephalic Oral: Dry Mucosa Neck: Supple, No JVD, Negative Carotid Bruits Lungs: Clear to auscultation, Normal air movement Cardiovascular: Regular rate, Regular Rhythm, Normal S1, Normal S2, No murmurs Abdomen: Bowel Sounds Present, Soft, Non Tender, Non-Distended Extremities: No clubbing, No cyanosis, No edema, Capillary Refill Less than 3 Seconds Skin: No rashes, No breakdown Musculoskeletal: No Tenderness to Palpation of Joints or Extremities Neurological: Cranial nerves II-XII grossly intact, Neuro grossly intact Psych/Mental Status: Normal Affect, Appropriate Plan is to continue with IVF hydration and SC granix. She is on broad sepctrum antibiotics (IV meropenem) for febrile neutropenia. Blood cultures are growing GNR lactose space systems operations manager- speciation is pending. Dr Ruiz to see tomorrow and decide goals of care with patient. Rest of management as per Xena SUÁREZ's note. Agree with above note, assessment and plan by Xena SUÁREZ; Code Visit Inpatient E&M: [id number] [facility] L[facility]
[2018-02-16 17:35] LABS: Bedside Glucose 284 mg/dL (70-110)
--- NOTE | 2018-02-16 19:25 | RAD_ITS ---
STUDY: X-RAY CHEST REASON FOR EXAM: Female, 68 years old. Fever. Shortness of breath. Neutropenia. TECHNIQUE: Single frontal view of the chest. COMPARISON: 02/15/2018. FINDINGS: Right Mediport catheter terminates in the upper SVC. Low lung volumes. Diffuse coronary density bilaterally, stable and could represent congestion/edema or fibrosis. Possible mild atelectasis in the lung bases. No gross infiltrates. No effusions. There is mild cardiac enlargement. Normal mediastinum and davonte. Normal visualized pulmonary arteries. Normal visualized aortic arch and descending thoracic aorta. Normal visualized thoracic spine. Normal visualized ribs, clavicles, and shoulders. There is no demonstrated abnormality of the visualized soft tissue structures of the upper abdomen. RAD/Chest 1 View (Portable) IMPRESSION: No definite change since yesterday's exam. Electronically Signed: Torey Garrison MD at 20:29 EST , Service support ,
[2018-02-16 22:45] LABS: Bedside Glucose 246 mg/dL (70-110)
[2018-02-16] MEDS: Furosemide 40 MG/4 ML Vial IV (22:52)
[2018-02-16] MEDS: 0.9% NaCl VAD Flush 10 ML IV (22:53)
[2018-02-17] VITALS (33 sets, daily range): BP systolic 62–122; BP diastolic 27–74; PULSE 86–112; RESP 12–40; TEMP 35.4–37.9; O2SAT 79–94
--- NOTE | 2018-02-17 03:52 | RAD_ITS ---
HISTORY: DYSPNEA EXAM: XR Chest 1 View: COMPARISON: Chest x-ray 02/16/2018 and CTA chest 02/15/2018 FINDINGS: The right jugular Port-A-Cath appears unchanged in position. Limited inspiration chest with EKG leads in place. Bilateral interstitial and alveolar airspace disease, likely edema. Poor visualization of the right and left heart borders. Left hemidiaphragm poorly visualized and left pleural effusion is not excluded. RAD/Chest 1 View (Portable) IMPRESSION: 1. Worsening bilateral interstitial and alveolar parenchymal lung opacity, likely worsening edema. 2. Limited inspiration chest. at 0456 Reported and signed by: Carroll Rivers MD Electronically Signed: Carroll Rivers, at 4:54 EST Tel , Service support ,
[2018-02-17] MEDS: Morphine 2 MG/ML Syringe IV (04:20)
[2018-02-17] MEDS: Furosemide 40 MG/4 ML Vial IV (04:20)
[2018-02-17] MEDS: 0.9% NaCl VAD Flush 10 ML IV (04:45)
--- NOTE | 2018-02-17 05:39 | NURSING ---
Respiratory arrived in pt's room and stated he had discussed pt's case with Dr Garcia and they had decided to commence bipap as pt not maintaining her 02 sats. Bipap fitted. Continuous pulse ox added. 02 sats 90% at this time.
[2018-02-17 06:51] LABS: Bedside Glucose 145 mg/dL (70-110)
--- NOTE | 2018-02-17 07:32 | PN_ITS ---
Patient Problems: Active and Suspected Problems Neutropenic fever (Acute) Subjective: Patient decompensated overnight with gram-negative sepsis. Possible abdominal abscess but abdomen is not tender on broad-spectrum antibiotic. She is also in respiratory failure possibly secondary to fluid overload versus ARDS. - Physical Exam General: Alert, Oriented x3 Oral: Moist Mucosa, No Gingival or Mucosal Lesions/ Ulcerations Neck: Supple, No JVD Lungs: Diminished Cardiovascular: Tachycardic Abdomen: Soft, Non Tender, No Hepato-splenomegaly, Bowel Sounds Not Present Extremities: No clubbing, No cyanosis, Edema Skin: No rashes, No breakdown Lymphatic: No Cervical, Supraclavicular, or Inguinal Adenopathy Neurological: Neuro grossly intact Psych/Mental Status: Anxious Vital Signs Temp Pulse Resp BP Pulse Ox 99.8 F H 98 32 H 122/70 H 90 02/17/18 06:43 02/17/18 06:43 02/17/18 06:43 02/17/18 05:11 02/17/18 06:43 Oxygen Flow Rate (L/min) 12 Oxygen Delivery Method Bi-pap Weight: 169 lb 15.622 oz Body Mass Index (BMI) 32.1 Intake and Output for Last 24 Hours 02/15/18 02/16/18 02/17/18 23:59 23:59 23:59 Intake Total 3023 / 3023 3215 / 3215 506 / 506 Output Total 325 / 325 1100 / 1100 1600 / 1600 Balance 2698 / 2698 2115 / 2115 -1094 / -1094 Microbiology Past 72 Hours 02/15/18 12:55 Blood Culture - Preliminary Blood Culture (Wb) - Venous GNR lactose kinesiology internship 02/15/18 13:20 Blood Culture - Preliminary Blood Culture (Wb) - Anticubital Right GNR lactose kinesiology internship Laboratory Tests Past 24 Hrs 02/16/18 02/16/18 02/16/18 06:54 06:54 06:54 Absolute Neuts (auto) 1.6 L Absolute Lymphs (auto) 0.60 L Total Counted 100 Neutrophils % (Manual) 58 Band Neutrophils % 4 Lymphocytes % (Manual) 24 Monocytes % (Manual) 13 H Metamyelocytes % 1 Diff Path Review May foll Platelet Estimate MKD DEC Hypochromasia 2+ Sodium 132 L Potassium 3.3 L Chloride 103 Carbon Dioxide 20.0 L Anion Gap 9 BUN 15 Creatinine 0.67 Estim Creat Clear Calc 40.07 Est GFR (MDRD) Af Amer 113 Est GFR (MDRD) Non-Af 93 BUN/Creatinine Ratio 22.5 H Glucose 158 H Lactic Acid 1.5 Calcium 6.8 L Total Bilirubin 3.30 H AST 139 H ALT 48 Alkaline Phosphatase 290 H Total Protein 5.6 L Albumin 1.1 L Globulin 4.5 H Albumin/Globulin Ratio 0.2 L POC Glucose 02/17/18 02/16/18 02/16/18 06:41 22:40 16:54 POC Glucose 145 H 246 H 284 H 02/16/18 11:18 POC Glucose 128 H CXR: Increased interstitial edema bilateral infiltrates. Medical Necessity - Tobacco Use Smoking Status: Never smoker Tobacco Use: - Assessment/Plan All Active Problems Neutropenic fever (Acute) ASSESSMENT/PLAN: 1) Neutropenia w/ gram-negative sepsis Assessment: -Likely biliary source with subacute presentation. -Fever resolving after antibiotic. -ANC responding to neupogen. Plan: -Continue broad-spectrum antibiotics. -Continue G-CSF -Consult ID and transferred to ICU -IV fluids. -Possible repeat CT abdomen pelvis if condition does not improve and reconsult surgery if there is a perforation or abscess 2) respiratory failure Assessment: -ARDS vs fluid overload -Continue to sepsis Plan: -Consult pulmonary medicine Local regionally advanced cholangiocarcinoma. Assessment: -Patient is DNR. Plan: -No chemotherapy this upcoming week. -We will discuss goals of care again after patient recovered. cc; Dr. Jocelyn Ruiz, Dr. Marcel Ruiz; Dr. Lakisha León
--- NOTE | 2018-02-17 07:49 | NURSING ---
Spoke with patient's daughter, Ladonna and she is in agreement to transfer patient to the ICU.
--- NOTE | 2018-02-17 08:36 | NURSING ---
Patient's daughter, Ladonna, very upset. Has questions for Dr. Ruiz. He is paged at this time.
[2018-02-17 09:12] LABS: Hematocrit 29.5 % (37-47); Hemoglobin 9.7 g/dl (12.0-15.0); Mean Corp Hgb Conc 32.9 g/gl (32-36); Mean Corpuscular Hgb 29.2 pg (27.0-32.0); Mean Corpuscular Volume 88.9 fL (81-99); Mean Platelet Vol. 10.2 fl (6.2-12.0); Platelet Count 119 K/mm3 (150-450); RBC Distribution Width SD 56.1 fl (35.1-43.9); Red Blood Count 3.32 M/mm3 (4.2-5.4); White Blood Count 2.9 K/mm3 (4.4-11.0)
[2018-02-17 09:16] LABS: Scan Indicated on CBC? Y/N NO
[2018-02-17 09:25] LABS: ALB/GLOB Ratio 0.3 RATIO (0.9-2.4); AST(SGOT) 134 U/L (15-37); Alanine Aminotransfer ALT/SGPT 52 U/L (13-56); Albumin, Serum 1.2 g/dL (3.2-5.0); Alkaline Phosphatase 383 U/L (45-117); Anion Gap 10 (5-15); BUN 12 mg/dL (7-18); BUN/Creat Ratio 15.4 RATIO (10-20); Calcium,Total 6.8 mg/dL (8.5-10.1); Chloride 100 mmol/L (98-107); Creatinine, Serum 0.78 mg/dL (0.55-1.02); EST Glomerular Filtration Rate 78 mL/min (>60); Est Glom Filt Rate - Afr Amer 94 mL/min (>60); Estimated Creatinine Clearance 40.07 ml/min; Globulin 4.6 g/dL (2.2-4.2); Glucose 135 mg/dL (74-106); Potassium 3.3 mmol/L (3.5-5.1); Protein, Total 5.8 g/dL (6.4-8.2); Sodium Level 132 mmol/L (136-145)
[2018-02-17] MEDS: TBO-FILGRASTIM 480 MCG/0.8 ML ML SC (09:51)
[2018-02-17 10:57] LABS: Pathologist Review Reviewed
[2018-02-17 11:55] LABS: Pathologist Review Reviewed
[2018-02-17 12:40] LABS: Bedside Glucose 104 mg/dL (70-110)
--- NOTE | 2018-02-17 13:00 | CASEMGMT ---
HARVEY GOSS Face to Face with patient for initial transition planning/care coordination assessment. HARVEY GOSS introduced self and role at [facility]. Patient lying in bed, alert and oriented, BiPap in place, family at bedside and patient gave permission for RN CM to speak with family regarding discharge planning. Daughter willing to participate in assessment and is able to answer all questions appropriately. Care providers, pharmacy, and demographics verified. Patient wishes for family to return home with possible HHC, but if patient requires more care, family is agreeable to SNF. HARVEY GOSS encouraged family to research SNFs. Family denies further needs or concerns at this time. CM to follow for discharge planning needs that may arise. PCP: Aicha Specialists: Sara, oncologist Preferred Pharmacy: [facility] Insurance: [facility] Prescription Benefit: Daughter thinks she has prescription coverage Living Will/HPOA: Yes, daughter Ladonna Constantino HPOA LNOK: Daughter, 4 sisters Living Arrangements: Patient lives alone in 1 story house, patient was previously independent Transportation: Self, family DME/HHC: Patient has walker, wheelchair, and Bipap at home. Disposition Plan: TBD by course of treatment. Will monitor therapy notes and progress. Lisbet PIERCE, RN, CM
[2018-02-17 13:05] LABS: Allen Test POS; Base Excess -3 mmol/L (-2 to +2); Bicarbonate 21.6 mmol/L (22-26); Blood Gas Specimen Type ART; EPAP 10; FI02 80; IPAP 16; PO2 59 mmHG (75-100); RR 12; SITE L Radial; SO2 91 % (95-99); Time Given 1115; Total Carbon Dioxide 23 mmol/L; pCO2 33.4 mmHg (35-45); pH 7.42 (7.35-7.45)
--- NOTE | 2018-02-17 13:34 | PCM.CON.CC ---
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 Patient had reportedly received chemotherapy 2 weeks ago for gallbladder cancer and had reported chills and progressive weakness with shortness of breath. In the emergency room, patient was noted to be hypoxic and was placed on supplemental oxygen. Patient started to develop a fever when sent for a PE study and was admitted to the floor with a diagnosis of neutropenic fever on meropenem. At approximately 830 this morning, I was called to the patient's room secondary to concerns for hypoxic respiratory failure. Patient had been placed on BiPAP therapy, 16/10 with 50% FiO2 to maintain appropriate saturations. There was a request for an ICU bed by oncology. At that time, patient was noted to have 2 blood cultures positive for ESBL E. coli. Discussed with patient's daughter at that time and patient was confirmed to be a DNR Comfort Care arrest without intubation. Patient's blood pressures were acceptable, so patient was transferred to PCU on stepdown status. Over the course of the day, multiple visits to the PCU to check on the patient's status. Patient has been tachypneic. ABG showed adequate oxygenation and ventilation despite respiratory rates in the mid 30s. Patient did not have any paradoxical breathing. Second family meeting with patient's sisters and daughter over patient's condition. They once again reiterated that she is a DNR Comfort Care arrest without intubation. There were some questions about the prognosis of the cholangiocarcinoma, but Dr. castellanos is unable to come back at this time. Patient is not able to provide much history at this time. Patient's daughter reports that she was just diagnosed 3 months ago and they have not talked much beyond CODE STATUS as to her wishes. Past Medical History Past Medical History (Chronic Problems): Chronic Problems Metastasis from gallbladder cancer (Chronic) Type 2 diabetes mellitus (Chronic) Hyperlipidemia (Chronic) Hypertension (Chronic) Hypothyroidism (Chronic) MARIE (obstructive sleep apnea) (Chronic) Allergies No Known Allergies Allergy (Verified 01/02/18 10:10) Home Medications: Ambulatory Orders Medication Instructions Recorded Ascorbic Acid [Vitamin C] 1,000 mg PO DAILY 01/02/18 Cetirizine HCl [Zyrtec] 10 mg PO DAILY 01/02/18 Citalopram [Celexa] 20 mg PO DAILY 01/02/18 Fluticasone 0.05% [Flonase Nasal 1 spray NASAL DAILY 01/02/18 Bacova] Gabapentin [Neurontin] 300 mg PO TIDCM 01/02/18 Levothyroxine [Synthroid] 75 mcg PO DAILY 01/02/18 Metformin(XR) [Glucophage Xr] 1,000 mg PO BID 01/02/18 Omeprazole 40 mg PO DAILY 01/02/18 glipiZIDE XL [Glucotrol Xl] 20 mg PO DAILY@0800 01/02/18 Ondansetron HCl [Zofran] 4 mg PO DAILY 02/15/18 Surgical History: appendectomy, - - Right chest port. Psychiatric History: Depression DOCK PUMPER History: No pertinent DOCK PUMPER history Lives: Alone Smoking Status: Never smoker Tobacco Use: - Alcohol: None Drugs: None - *Family History Maternal History Items: - - Colon cancer Paternal History Items: Diabetes, Heart Disease Review of Systems Comment: See HPI, otherwise reported negative Patient Problems: Active and Suspected Problems Neutropenic fever (Acute) Acute respiratory failure with hypoxia (Acute) Objective: Imaging was personally reviewed. CTA of the chest was difficult to read as there was significant movement artifacts. There was pulmonary venous congestion. CT of the abdomen showed a possible gallbladder abscess. Repeat chest x-ray showed worsening pulmonary infiltrates this morning. No previous echocardiogram or PFTs are available for review. - Physical Exam General: - - RASS +1. Obese. Tachypnea without paradoxical respiratory motion HEENT: Atraumatic, PERRLA, EOMI, Normocephalic, - - No scleral icterus or injection noted. Oral: No Gingival or Mucosal Lesions/ Ulcerations, Dry Mucosa Neck: Supple, No JVD, No Nodes, Trachea Midline Lungs: No rhonchi, No wheeze, Diminished, Rales, - - Symmetric expansion. No dullness to percussion. Cardiovascular: Normal S1, Normal S2, No murmurs, No rub noted, No Gallop, Tachycardic Abdomen: Soft, Non Tender, Hypoactive Bowel Sounds, Distended, Obese Extremities: No clubbing, No cyanosis, Capillary Refill Less than 3 Seconds, Edema Skin: No rashes, No breakdown Musculoskeletal: No Tenderness to Palpation of Joints or Extremities Lymphatic: No Cervical, Supraclavicular, or Inguinal Adenopathy Neurological: Cranial nerves II-XII grossly intact, Neuro grossly intact, Motor Exam 5/5 strength throughout Psych/Mental Status: Anxious, Restless Vital Signs Temp Pulse Resp BP Pulse Ox 37.7 C H 99 40 H 91/61 88 02/17/18 12:00 02/17/18 12:00 02/17/18 12:00 02/17/18 12:00 02/17/18 12:00 Oxygen Flow Rate (L/min) 12 Oxygen Delivery Method Bi-pap Weight: 77.1 kg Body Mass Index (BMI) 32.1 Intake and Output for Last 24 Hours 02/15/18 02/16/18 02/17/18 23:59 23:59 23:59 Intake Total 3023 / 3023 3215 / 3215 626 / 626 Output Total 325 / 325 1100 / 1100 1950 / 1950 Balance 2698 / 2698 2115 / 2115 -1324 / -1324 Microbiology Past 72 Hours 02/15/18 13:15 Urine Culture - Preliminary Urine Catheter - Catheter Culture exhibits no growth. 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 Laboratory Tests Past 24 Hrs 02/15/18 02/16/18 02/17/18 12:55 06:54 08:57 WBC 2.9 L RBC 3.32 L Hgb 9.7 L Hct 29.5 L MCV 88.9 MCH 29.2 MCHC 32.9 RDW 18.0 H RDW Differential 56.1 H Plt Count 119 L MPV 10.2 Diff Path Review Reviewed Reviewed Specimen Type Sample Site pH Bicarbonate Actual POC Total CO2 Base Excess O2 Saturation O2 % ABG pCO2 ABG pO2 Luis Fernando Test Respiration Rate O2 Delivery Device EPAP IPAP Blood Gas Notified Whom Blood Gas Notified Time Sodium Potassium Chloride Carbon Dioxide Anion Gap BUN Creatinine Estim Creat Clear Calc Est GFR (MDRD) Af Amer Est GFR (MDRD) Non-Af BUN/Creatinine Ratio Glucose Calcium Magnesium Total Bilirubin AST ALT Alkaline Phosphatase Total Protein Albumin Globulin Albumin/Globulin Ratio 02/17/18 02/17/18 08:57 11:34 WBC RBC Hgb Hct MCV MCH MCHC RDW RDW Differential Plt Count MPV Diff Path Review Specimen Type ART Sample Site L Radial pH 7.42 Bicarbonate Actual 21.6 L POC Total CO2 23 Base Excess -3 L O2 Saturation 91 L O2 % 80 ABG pCO2 33.4 L ABG pO2 59 L Luis Fernando Test POS Respiration Rate 12 O2 Delivery Device Bi / C PAP EPAP 10 IPAP 16 Blood Gas Notified Whom ICU Blood Gas Notified Time 1115 Sodium 132 L Potassium 3.3 L Chloride 100 Carbon Dioxide 22.0 Anion Gap 10 BUN 12 Creatinine 0.78 Estim Creat Clear Calc 40.07 Est GFR (MDRD) Af Amer 94 Est GFR (MDRD) Non-Af 78 BUN/Creatinine Ratio 15.4 Glucose 135 H Calcium 6.8 L Magnesium 1.0 L Total Bilirubin 3.90 H AST 134 H ALT 52 Alkaline Phosphatase 383 H Total Protein 5.8 L Albumin 1.2 L Globulin 4.6 H Albumin/Globulin Ratio 0.3 L POC Glucose 02/17/18 02/17/18 02/16/18 12:32 06:41 22:40 POC Glucose 104 145 H 246 H 02/16/18 16:54 POC Glucose 284 H Clinical Impression(s) from Imaging Studies Chest X-Ray 02/15/18 12:50 IMPRESSION: Prominent markings which could be due to pulmonary venous congestion. Hypoventilatory changes. Electronically Signed: Kanu Martinez MD at 13:20 EST Tel , Service support , Chest CTA 02/15/18 13:49 IMPRESSION: 1. Markedly limited examination due to significant artifacts. 2. Questionable filling defects in the right lower lobe and proximal branches of the lower lobes pulmonary arteries. Pulmonary embolism cannot be entirely excluded. 3. Pulmonary venous congestion. 4. Partially visualized air collection in the right lobe of the liver which could be within the liver or partial volume of the adjacent bowel. CT scan of the abdomen is recommended. N.B. : The above information has been verbally conveyed by Kanu Martinez MD to Dr. Carlos Mattson MD, on 02/15/2018 15:33:45 (ET). Electronically Signed: Kanu Martinez MD at 15:25 EST Tel , Service support , ADDENDUM: 02/15/18 1707 Abdomen/Pelvis CT 02/15/18 15:39 IMPRESSION: 1. Gas in the gallbladder fossa. In the absence of recent surgery, the finding is suspicious for contained perforation of the hepatic flexure, with probable abscess in the gallbladder fossa. Underlying malignancy cannot be excluded, and may be secondary to colon primary versus extension of gallbladder carcinoma to the colon. 2. Hypodensity in the pancreatic head may represent markedly dilated distal common duct, mass or abscess/pancreatitis. Consider nonemergent contrast enhanced CT abdomen or MRCP for further evaluation of the pancreas. N.B. : The above information has been verbally conveyed by Araceli Ross MD to Concepcion Patel RN, RN, on 02/15/2018 17:10:59 (ET). Electronically Signed: Araceli Ross MD at 16:54 EST Tel , Service support , Chest X-Ray 02/16/18 19:25 IMPRESSION: No definite change since yesterday's exam. Electronically Signed: Torey Garrison MD at 20:29 EST , Service support , Chest X-Ray 02/17/18 03:52 IMPRESSION: 1. Worsening bilateral interstitial and alveolar parenchymal lung opacity, likely worsening edema. 2. Limited inspiration chest. at 0456 Reported and signed by: Carroll Rivers MD Electronically Signed: Carroll Rivers, at 4:54 EST Tel , Service support , Assessment/Plan Active and Suspected Problems Neutropenic fever (Acute) Acute respiratory failure with hypoxia (Acute) RECOMMENDATIONS: 1. Continue meropenem 2. BiPAP at current settings, possibly increase EPAP 3. May need ultrasounded guided drainage catheter for abscess removal 4. Wean oxygen as tolerated 5. Possible initiation of pressors 6. DNR Comfort Care arrest without intubation IMPRESSIONS: 1. Severe sepsis secondary to ESBL E. coli Patient growing blood cultures positive for ESBL E. coli from admission. Patient has been receiving Granix and is having immune reconstitution at this time. Patient with significant pulmonary edema, but likely source is patient's cholangiocarcinoma. Patient is on appropriate antibiotics. Extensive discussion with the patient and family about goals of therapy. Family wants to talk with Dr. Ruiz about prognosis of cholangiocarcinoma. They are very clear that patient is not to be intubated, but would be open to pressor agents if necessary. 2. Acute hypoxic respiratory failure secondary to severe sepsis Patient with significant infiltrates noted on chest x-ray. It is unclear if this is secondary to a pneumonia versus pulmonary edema from patient's severe sepsis. Patient does not have any reported underlying lung disease. Patient does have a history of MARIE. We will continue to monitor BiPAP settings. Increase in EPAP may be necessary to maintain appropriate saturations. ABG shows adequate oxygenation and ventilation on current settings. No signs of respiratory muscle fatigue at this time, but patient remains significantly tachypneic. 3. Pancytopenia secondary to chemotherapy/neutropenic fever Patient currently receiving Granix therapy. Patient was significant fever during hospitalization. Chemotherapy has been held. Oncology is following. 4. Advanced cholangiocarcinoma Family with multiple questions about the prognosis of cholangiocarcinoma. This will have to be deferred oncology. Patient has received chemotherapy in the past, but this is currently held secondary to the acute condition. Patient also has what appears to be an abscess in the area of the gallbladder. It is unclear if this is truly an abscess versus malignancy. This may need drained in the future. 5. Obesity/diabetes mellitus type 2/hyperlipidemia/hypertension/hypothyroidism/MARIE Complicates care, management, recovery and prognosis. Hold p.o. medications given respiratory status. Addendum 1510: Called to patient's bedside secondary to persistent hypoxemia despite BiPAP therapy at 16/10 with 80% FiO2. Patient was saturating in the mid 80s with good waveform on my evaluation. Patient remained tachypneic breathing 30-35 times per minute. No paradoxical breathing was appreciated. Patient was increased to 20/14 with transient improvement in saturations. Patient's family was updated at the bedside. Patient reportedly does wear BiPAP 16/14 at home. Patient's daughter was not at the bedside to discuss changing CODE STATUS, but sisters were updated. TIME: 80 minutes of critical care time spent addressing patient's severe sepsis, acute respiratory failure, pancytopenia, review of all data and collaboration with care team (8:30 AM to 3 PM) Code Visit Procedures: 25789 Critial Care Addl 30 Min 9xxxx: [id number] Critical care first hour
--- NOTE | 2018-02-17 13:50 | CON.PCM_ITS ---
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 Patient had reportedly received chemotherapy 2 weeks ago for gallbladder cancer and had reported chills and progressive weakness with shortness of breath. In the emergency room, patient was noted to be hypoxic and was placed on supplemental oxygen. Patient started to develop a fever when sent for a PE study and was admitted to the floor with a diagnosis of neutropenic fever on meropenem. At approximately 830 this morning, I was called to the patient's room secondary to concerns for hypoxic respiratory failure. Patient had been placed on BiPAP therapy, 16/10 with 50% FiO2 to maintain appropriate saturations. There was a request for an ICU bed by oncology. At that time, patient was noted to have 2 blood cultures positive for ESBL E. coli. Discussed with patient's daughter at that time and patient was confirmed to be a DNR Comfort Care arrest without intubation. Patient's blood pressures were acceptable, so patient was transferred to PCU on stepdown status. Over the course of the day, multiple visits to the PCU to check on the patient's status. Patient has been tachypneic. ABG showed adequate oxygenation and ventilation despite respiratory rates in the mid 30s. Patient did not have any paradoxical breathing. Second family meeting with patient's sisters and daug hter over patient's condition. They once again reiterated that she is a DNR Comfort Care arrest without intubation. There were some questions about the prognosis of the cholangiocarcinoma, but Dr. castellanos is unable to come back at this time. Patient is not able to provide much history at this time. Patient's daughter reports that she was just diagnosed 3 months ago and they have not talked much b eyond CODE STATUS as to her wishes. Past Medical History Past Medical History (Chronic Problems): Chronic Problems Metastasis from gallbladder cancer (Chronic) Type 2 diabetes mellitus (Chronic) Hyperlipidemia (Chronic) Hypertension (Chronic) Hypothyroidism (Chronic) MARIE (obstructive sleep apnea) (Chronic) Allergies No Known Allergies Allergy (Verified 01/02/18 10:10) Home Medications: Ambulatory Orders Medication Instructions Recorded Ascorbic Acid [Vitamin C] 1,000 mg PO DAILY 01/02/18 Cetirizine HCl [Zyrtec] 10 mg PO DAILY 01/02/18 Citalopram [Celexa] 20 mg PO DAILY 01/02/18 Fluticasone 0.05% [Flonase Nasal 1 spray NASAL DAILY 01/02/18 [place]] Gabapentin [Neurontin] 300 mg PO TIDCM 01/02/18 Levothyroxine [Synthroid] 75 mcg PO DAILY 01/02/18 Metformin(XR) [Glucophage Xr] 1,000 mg PO BID 01/02/18 Omeprazole 40 mg PO DAILY 01/02/18 glipiZIDE XL [Glucotrol Xl] 20 mg PO DAILY@0800 01/02/18 Ondansetron HCl [Zofran] 4 mg PO DAILY 02/15/18 Surgical History: appendectomy, - - Right chest port. 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 CTA of the chest was difficult to read as there was significant movement artifacts. There was pulmonary venous congestion. CT of the abdomen showed a possible gallbladder abscess. Repeat chest x-ray showed worsening pulmonary infiltrates this morning. No previous echocardiogram or PFTs are available for review. - Physical Exam General: - - RASS +1. Obese. Tachypnea without paradoxical respiratory motion HEENT: Atraumatic, PERRLA, EOMI, Normocephalic, - - No scleral icterus or injection noted. Oral: No Gingival or Mucosal Lesions/ Ulcerations, Dry Mucosa Neck: Supple, No JVD, No Nodes, Trachea Midline Lungs: No rhonchi, No wheeze, Diminished, Rales, - - Symmetric expansion. No dullness to percussion. Cardiovascular: Normal S1, Normal S2, No murmurs, No rub noted, No Gallop, Tachycardic Abdomen: Soft, Non Tender, Hypoactive Bowel Sounds, Distended, Obese Extremities: No clubbing, No cyanosis, Capillary Refill Less than 3 Seconds, Edema Skin: No rashes, No breakdown Musculoskeletal: No Tenderness to Palpation of Joints or Extremities Lymphatic: No Cervical, Supraclavicular, or Inguinal Adenopathy Neurological: Cranial nerves II-XII grossly intact, Neuro grossly intact, Motor Exam 5/5 strength throughout Psych/Mental Status: Anxious, Restless Vital Signs Temp Pulse Resp BP Pulse Ox 37.7 C H 99 40 H 91/61 88 02/17/18 12:00 02/17/18 12:00 02/17/18 12:00 02/17/18 12:00 02/17/18 12:00 Oxygen Flow Rate (L/min) 12 Oxygen Delivery Method Bi-pap Weight: 77.1 kg Body Mass Index (BMI) 32.1 Intake and Output for Last 24 Hours 02/15/18 02/16/18 02/17/18 23:59 23:59 23:59 Intake Total 3023 / 3023 3215 / 3215 626 / 626 Output Total 325 / 325 1100 / 1100 1950 / 1950 Balance 2698 / 2698 2115 / 2115 -1324 / -1324 Microbiology Past 72 Hours 02/15/18 13:15 Urine Culture - Preliminary Urine Catheter - Catheter Culture exhibits no growth. 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 Laboratory Tests Past 24 Hrs 02/15/18 02/16/18 02/17/18 12:55 06:54 08:57 WBC 2.9 L RBC 3.32 L Hgb 9.7 L Hct 29.5 L MCV 88.9 MCH 29.2 MCHC 32.9 RDW 18.0 H RDW Differential 56.1 H Plt Count 119 L MPV 10.2 Diff Path Review Reviewed Reviewed Specimen Type Sample Site pH Bicarbonate Actual POC Total CO2 Base Excess O2 Saturation O2 % ABG pCO2 ABG pO2 Luis Fernando Test Respiration Rate O2 Delivery Device EPAP IPAP Blood Gas Notified Whom Blood Gas Notified Time Sodium Potassium Chloride Carbon Dioxide Anion Gap BUN Creatinine Estim Creat Clear Calc Est GFR (MDRD) Af Amer Est GFR (MDRD) Non-Af BUN/Creatinine Ratio Glucose Calcium Magnesium Total Bilirubin AST ALT Alkaline Phosphatase Total Protein Albumin Globulin Albumin/Globulin Ratio 02/17/18 02/17/18 08:57 11:34 WBC RBC Hgb Hct MCV MCH MCHC RDW RDW Differential Plt Count MPV Diff Path Review Specimen Type ART Sample Site L Radial pH 7.42 Bicarbonate Actual 21.6 L POC Total CO2 23 Base Excess -3 L O2 Saturation 91 L O2 % 80 ABG pCO2 33.4 L ABG pO2 59 L Luis Fernando Test POS Respiration Rate 12 O2 Delivery Device Bi / C PAP EPAP 10 IPAP 16 Blood Gas Notified Whom ICU Blood Gas Notified Time 1115 Sodium 132 L Potassium 3.3 L Chloride 100 Carbon Dioxide 22.0 Anion Gap 10 BUN 12 Creatinine 0.78 Estim Creat Clear Calc 40.07 Est GFR (MDRD) Af Amer 94 Est GFR (MDRD) Non-Af 78 BUN/Creatinine Ratio 15.4 Glucose 135 H Calcium 6.8 L Magnesium 1.0 L Total Bilirubin 3.90 H AST 134 H ALT 52 Alkaline Phosphatase 383 H Total Protein 5.8 L Albumin 1.2 L Globulin 4.6 H Albumin/Globulin Ratio 0.3 L POC Glucose 02/17/18 02/17/18 02/16/18 12:32 06:41 22:40 POC Glucose 104 145 H 246 H 02/16/18 16:54 POC Glucose 284 H Clinical Impression(s) from Imaging Studies Chest X-Ray 02/15/18 12:50 IMPRESSION: Prominent markings which could be due to pulmonary venous congestion. Hypoventilatory changes. Electronically Signed: Kanu Martinez MD at 13:20 EST Tel , Service support , Chest CTA 02/15/18 13:49 IMPRESSION: 1. Markedly limited examination due to significant artifacts. 2. Questionable filling defects in the right lower lobe and proximal branches of the lower lobes pulmonary arteries. Pulmonary embolism cannot be entirely excluded. 3. Pulmonary venous congestion. 4. Partially visualized air collection in the right lobe of the liver which could be within the liver or partial volume of the adjacent bowel. CT scan of the abdomen is recommended. N.B. : The above information has been verbally conveyed by Kanu Martinez MD to Dr. Carlos Mattson MD, on 02/15/2018 15:33:45 (ET). Electronically Signed: Kanu Martinez MD at 15:25 EST Tel , Service support , ADDENDUM: 02/15/18 1707 Abdomen/Pelvis CT 02/15/18 15:39 IMPRESSION: 1. Gas in the gallbladder fossa. In the absence of recent surgery, the finding is suspicious for contained perforation of the hepatic flexure, with probable abscess in the gallbladder fossa. Underlying malignancy cannot be excluded, and may be secondary to colon primary versus extension of gallbladder carcinoma to the colon. 2. Hypodensity in the pancreatic head may represent markedly dilated distal common duct, mass or abscess/pancreatitis. Consider nonemergent contrast enhanced CT abdomen or MRCP for further evaluation of the pancreas. N.B. : The above information has been verbally conveyed by Araceli Ross MD to Concepcion Patel RN, RN, on 02/15/2018 17:10:59 (ET). Electronically Signed: Araceli Ross MD at 16:54 EST Tel , Service support , Chest X-Ray 02/16/18 19:25 IMPRESSION: No definite change since yesterday's exam. Electronically Signed: Torey Garrison MD at 20:29 EST , Service support , Chest X-Ray 02/17/18 03:52 IMPRESSION: 1. Worsening bilateral interstitial and alveolar parenchymal lung opacity, likely worsening edema. 2. Limited inspiration chest. at 0456 Reported and signed by: Carroll Rivers MD Electronically Signed: Carroll Rivers, at 4:54 EST Tel , Service support , Assessment/Plan Active and Suspected Problems Neutropenic fever (Acute) Acute respiratory failure with hypoxia (Acute) RECOMMENDATIONS: 1. Continue meropenem 2. BiPAP at current settings, possibly increase EPAP 3. May need ultrasounded guided drainage catheter for abscess removal 4. Wean oxygen as tolerated 5. Possible initiation of pressors 6. DNR Comfort Care arrest without intubation IMPRESSIONS: 1. Severe sepsis secondary to ESBL E. coli Patient growing blood cultures positive for ESBL E. coli from admission. Patient has been receiving Granix and is having immune reconstitution at this time. Patient with significant pulmonary edema, but likely source is patient's cholangiocarcinoma. Patient is on appropriate antibiotics. Extensive discussion with the patient and family about goals of therapy. Family wants to talk with Dr. Ruiz about prognosis of cholangiocarcinoma. They are very clear that patient is not to be intubated, but would be open to pressor agents if necessary. 2. Acute hypoxic respiratory failure secondary to severe sepsis Patient with significant infiltrates noted on chest x-ray. It is unclear if this is secondary to a pneumonia versus pulmonary edema from patient's severe sepsis. Patient does not have any reported underlying lung disease. Patient does have a history of MARIE. We will continue to monitor BiPAP settings. Increase in EPAP may be necessary to maintain appropriate saturations. ABG shows adequate oxygenation and ventilation on current settings. No signs of respiratory muscle fatigue at this time, but patient remains significantly tachypneic. 3. Pancytopenia secondary to chemotherapy/neutropenic fever Patient currently receiving Granix therapy. Patient was significant fever during hospitalization. Chemotherapy has been held. Oncology is following. 4. Advanced cholangiocarcinoma Family with multiple questions about the prognosis of cholangiocarcinoma. This will have to be deferred oncology. Patient has received chemotherapy in the past, but this is currently held secondary to the acute condition. Patient also has what appears to be an abscess in the area of the gallbladder. It is unclear if this is truly an abscess versus malignancy. This may need drained in the future. 5. Obesity/diabetes mellitus type 2/hyperlipidemia/hypertension/hypothyroidism/MARIE Complicates care, management, recovery and prognosis. Hold p.o. medicati ons given respiratory status. Addendum 1510: Called to patient's bedside secondary to persistent hypoxemia despite BiPAP therapy at 16/10 with 80% FiO2. Patient was saturating in the mid 80s with good waveform on my evaluation. Patient remained tachypneic breathing 30-35 times per minute. No paradoxical breathing was appreciated. Patient was increased to 20/14 with transient improvement in saturations. Patient's family was updated at the bedside. Patient reportedly does wear BiPAP 16/14 at home. Patient's daughter was not at the bedside to discuss changing CODE STATUS, but sisters were updated. TIME: 80 minutes of critical care time spent addressing patient's severe sepsis, acute respiratory failure, pancytopenia, review of all data and collaboration with care team (8:30 AM to 3 PM) Code Visit Procedures: 63714 Critial Care Addl 30 Min 9xxxx: [id number] Critical care first hour
[2018-02-17 16:11] LABS: Bedside Glucose 98 mg/dL (70-110)
--- NOTE | 2018-02-17 16:33 | PCM.PN.BLA ---
Progress Note Oncology Progress Note: Family discussion this evening about patient's condition and her wishes not to be intubated and DNR status. She has advanced gallbladder CA. Continue supportive care and possible inpatient hospice referral tomorrow if acute respiratory failure doesn't improves. Continue board-spectum antibiotics and G-CSF for E coli spesis & possible pneumonia. Dr. Jocelyn Ruiz; Dr. Marcel Ruiz.
--- NOTE | 2018-02-17 16:35 | CON.PCM_ITS ---
Problem List (1) Bacteremia due to Escherichia coli Status: Acute Reason for Consult: bacteremia Consulted by: Dr. 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 No issues with port. Came to ED 02/15, fever to 103.6, admitted on meropenem. Had pancytopenia, onc consulted, started on GCSF. Bcx now with ecoli. Feeling better, fever resolved, but now with new SOB, no sputum. Pulm now following as well. Full ROS Performed and neg except as noted above. - Medical History Past Medical History (Chronic Problems): Chronic Problems Metastasis from gallbladder cancer (Chronic) Type 2 diabetes mellitus (Chronic) Hyperlipidemia (Chronic) Hypertension (Chronic) Hypothyroidism (Chronic) MARIE (obstructive sleep apnea) (Chronic) Allergies/Adverse Reactions: Allergies No Known Allergies Allergy (Verified 01/02/18 10:10) Home Medications: Ambulatory Orders Medication Instructions Recorded Ascorbic Acid [Vitamin C] 1,000 mg PO DAILY 01/02/18 Cetirizine HCl [Zyrtec] 10 mg PO DAILY 01/02/18 Citalopram [Celexa] 20 mg PO DAILY 01/02/18 Fluticasone 0.05% [Flonase Nasal 1 spray NASAL DAILY 01/02/18 [place]] Gabapentin [Neurontin] 300 mg PO TIDCM 01/02/18 Levothyroxine [Synthroid] 75 mcg PO DAILY 01/02/18 Metformin(XR) [Glucophage Xr] 1,000 mg PO BID 01/02/18 Omeprazole 40 mg PO DAILY 01/02/18 glipiZIDE XL [Glucotrol Xl] 20 mg PO DAILY@0800 01/02/18 Ondansetron HCl [Zofran] 4 mg PO DAILY 02/15/18 - Social History Tobacco Use: non-smoker Vital Signs Temp Pulse Resp BP Pulse Ox 98 F 94 36 H 84/53 L 94 02/17/18 16:00 02/17/18 16:00 02/17/18 16:00 02/17/18 16:00 02/17/18 16:00 Oxygen Flow Rate (L/min) 12 Oxygen Delivery Method Bi-pap Weight: 77.1 kg Body Mass Index (BMI) 32.1 Microbiology Past 72 Hours 02/15/18 13:15 Urine Culture - Preliminary Urine Catheter - Catheter Culture exhibits no growth. 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 Laboratory Tests Past 24 Hrs 02/15/18 02/16/18 02/17/18 12:55 06:54 08:57 WBC 2.9 L RBC 3.32 L Hgb 9.7 L Hct 29.5 L MCV 88.9 MCH 29.2 MCHC 32.9 RDW 18.0 H RDW Differential 56.1 H Plt Count 119 L MPV 10.2 Diff Path Review Reviewed Reviewed Specimen Type Sample Site pH Bicarbonate Actual POC Total CO2 Base Excess O2 Saturation O2 % ABG pCO2 ABG pO2 Luis Fernando Test Respiration Rate O2 Delivery Device EPAP IPAP Blood Gas Notified Whom Blood Gas Notified Time Sodium Potassium Chloride Carbon Dioxide Anion Gap BUN Creatinine Estim Creat Clear Calc Est GFR (MDRD) Af Amer Est GFR (MDRD) Non-Af BUN/Creatinine Ratio Glucose Calcium Magnesium Total Bilirubin AST ALT Alkaline Phosphatase Total Protein Albumin Globulin Albumin/Globulin Ratio 02/17/18 02/17/18 08:57 11:34 WBC RBC Hgb Hct MCV MCH MCHC RDW RDW Differential Plt Count MPV Diff Path Review Specimen Type ART Sample Site L Radial pH 7.42 Bicarbonate Actual 21.6 L POC Total CO2 23 Base Excess -3 L O2 Saturation 91 L O2 % 80 ABG pCO2 33.4 L ABG pO2 59 L Luis Fernando Test POS Respiration Rate 12 O2 Delivery Device Bi / C PAP EPAP 10 IPAP 16 Blood Gas Notified Whom ICU MD Blood Gas Notified Time 1115 Sodium 132 L Potassium 3.3 L Chloride 100 Carbon Dioxide 22.0 Anion Gap 10 BUN 12 Creatinine 0.78 Estim Creat Clear Calc 40.07 Est GFR (MDRD) Af Amer 94 Est GFR (MDRD) Non-Af 78 BUN/Creatinine Ratio 15.4 Glucose 135 H Calcium 6.8 L Magnesium 1.0 L Total Bilirubin 3.90 H AST 134 H ALT 52 Alkaline Phosphatase 383 H Total Protein 5.8 L Albumin 1.2 L Globulin 4.6 H Albumin/Globulin Ratio 0.3 L - Other Studies Radiology: [] reviewed Other Studies: [] Route of nutrition/ use of supplements: [] Nutritional Intake: [] IV Site: [] Cheema Catheter: [] - Physical Exam General: Alert, Cooperative, - - ill appearing HEENT: Atraumatic, PERRLA, EOMI Neck: Supple, No Nodes Lungs: Diminished Cardiovascular: No murmurs, Tachycardic Abdomen: Soft, Non Tender, Non-Distended Extremities: Edema - mild Skin: No rashes IV Site: Central Line, without redness Musculoskeletal: No Tenderness to Palpation of Joints or Extremities Neurological: Cranial nerves II-XII grossly intact - Assessment/Plan Antibiotics: [] Assessment/Plan: [] Active and Suspected Problems Neutropenic fever (Acute) Acute respiratory failure with hypoxia (Acute) Neutropenic fever due to ecoli bacteremia from GI source - CT showed some biliary air present and possible abscess. Concern for ongoing small perforation which could lead to recurrent bacteremia or peritonitis if not surgically addressed. Fever resolved, wbc improved. Ecoli with ? ESBL on testing, but generally very sensitive to beta lactams which would not be expected. Continue with meropenem for now. New respiratory failure - may be more fluid related, pulm following, abx as above. Will follow, thank you.
--- NOTE | 2018-02-17 17:02 | PCM.PN.HOSP ---
Patient Problems: Active and Suspected Problems Neutropenic fever (Acute) Acute respiratory failure with hypoxia (Acute) Bacteremia due to Escherichia coli (Acute) Subjective: She is extremely SOB and does not tolerate not being off the BiPAP. She appears lethargic and is unable to keep her eyes open Vitals/I&O's: Vital Signs Temp Pulse Resp BP Pulse Ox 98 F 94 36 H 84/53 L 94 02/17/18 16:00 02/17/18 16:00 02/17/18 16:00 02/17/18 16:00 02/17/18 16:00 Oxygen Flow Rate (L/min) 12 Oxygen Delivery Method Bi-pap Weight: 169 lb 15.622 oz Body Mass Index (BMI) 32.1 Intake and Output for Last 24 Hours 02/15/18 02/16/18 02/17/18 23:59 23:59 23:59 Intake Total 3023 / 3023 3215 / 3215 626 / 626 Output Total 325 / 325 1100 / 1100 1950 / 1950 Balance 2698 / 2698 2115 / 2115 -1324 / -1324 General: Cooperative, Lethargic HEENT: Atraumatic, EOMI, Normocephalic Oral: Moist Mucosa Neck: Supple, No JVD Lungs: Clear to auscultation, No rhonchi, No wheeze, No rales, Diminished, Tachypneic Cardiovascular: Regular Rhythm, Normal S1, Normal S2, No murmurs, Tachycardic Abdomen: Soft, Non Tender, Non-Distended, Obese Extremities: Capillary Refill Less than 3 Seconds, Edema Skin: No rashes, No breakdown Neurological: Neuro grossly intact, Sensory exam intact to light touch and pain Microbiology Past 72 Hours 02/15/18 13:15 Urine Catheter - Catheter Urine Culture - Preliminary Culture exhibits no growth. 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 Laboratory Results 02/15/18 12:55: Diff Path Review Reviewed 02/16/18 06:54: Diff Path Review Reviewed 02/16/18 16:54: POC Glucose 284 H 02/16/18 22:40: POC Glucose 246 H 02/17/18 06:41: POC Glucose 145 H 02/17/18 08:57: WBC 2.9 L, RBC 3.32 L, Hgb 9.7 L, Hct 29.5 L, MCV 88.9, MCH 29.2, MCHC 32.9, RDW 18.0 H, RDW Differential 56.1 H, Plt Count 119 L, MPV 10.2 02/17/18 08:57: Sodium 132 L, Potassium 3.3 L, Chloride 100, Carbon Dioxide 22.0, Anion Gap 10, BUN 12, Creatinine 0.78, Estim Creat Clear Calc 40.07, Est GFR (MDRD) Af Amer 94, Est GFR (MDRD) Non-Af 78, BUN/Creatinine Ratio 15.4, Glucose 135 H, Calcium 6.8 L, Magnesium 1.0 L, Total Bilirubin 3.90 H, AST 134 H, ALT 52, Alkaline Phosphatase 383 H, Total Protein 5.8 L, Albumin 1.2 L, Globulin 4.6 H, Albumin/Globulin Ratio 0.3 L 02/17/18 11:34: Specimen Type ART, Sample Site L Radial, pH 7.42, Bicarbonate Actual 21.6 L, POC Total CO2 23, Base Excess -3 L, O2 Saturation 91 L, O2 % 80, ABG pCO2 33.4 L, ABG pO2 59 L, Luis Fernando Test POS, Respiration Rate 12, O2 Delivery Device Bi / C PAP, EPAP 10, IPAP 16, Blood Gas Notified Whom ICU MD, Blood Gas Notified Time 1115 02/17/18 12:32: POC Glucose 104 02/17/18 16:06: POC Glucose 98 Current Medications Citalopram Hydrobromide (Celexa) 20 mg PO DAILY [facility] Last Admin: 02/17/18 12:26 Dose: Not Given Dextrose (D50w Syringe) 0 gm IV X1 PRN; Protocol PRN Reason: Hypoglycemia Last Admin: 02/15/18 17:36 Dose: 25 gm Gabapentin (Neurontin) 300 mg PO TIDCM [facility] Last Admin: 02/17/18 12:26 Dose: Not Given Glucagon () 1 mg IM .X1 PRN PRN Reason: Hypoglycemia Heparin Sodium (Beef Lung) () 50 units IV UD PRN PRN Reason: HEPARIN FLUSH Meropenem 1 gm/ Sodium (Chloride) 120 mls @ 33 mls/hr IV Q12 [facility] Last Admin: 02/17/18 10:29 Dose: 33 mls/hr Insulin Human Lispro (Humalog Kwikpen (Bkc)) 0 unit SC ACHS [facility]; Protocol Last Admin: 02/17/18 12:36 Dose: Not Given Levothyroxine Sodium (Synthroid) 75 mcg PO DAILY@0600 [facility] Last Admin: 02/17/18 05:43 Dose: Not Given Morphine Sulfate () 1 - 2 mg IV Q4H PRN PRN PRN Reason: pain, dyspnea Last Admin: 02/17/18 04:20 Dose: 2 mg Nutritional Formula (Lactose Free) (Glucerna Shake) 120 ml PO 4X/DAY [facility] Last Admin: 02/17/18 14:51 Dose: Not Given Ondansetron HCl (Zofran) 4 mg IV Q8H PRN PRN PRN Reason: Nausea Ondansetron HCl (Zofran Odt) 4 mg PO DAILY [facility] Last Admin: 02/17/18 12:27 Dose: Not Given Pantoprazole Sodium (Protonix) 40 mg PO DAILY [facility] Last Admin: 02/17/18 12:27 Dose: Not Given Sodium Chloride () 10 ml IV UD PRN PRN Reason: VAD FLUSH Last Admin: 02/17/18 04:45 Dose: 10 ml Medical Necessity - Tobacco Use Smoking Status: Never smoker Tobacco Use: - Assessment/Plan All Active Problems Neutropenic fever (Acute) Acute respiratory failure with hypoxia (Acute) Bacteremia due to Escherichia coli (Acute) 1. Neutropenic fever, etiology unclear/Acute Hypoxia 2/2 ARDS/Hypotension - UA unremarkable. -CXR without evidence of infiltrate, CT chest shows air collection in the right lobe of the liver - Blood cx with ESBL, c/w meropenem - C/s to ID - Continue to hold IVF and lasix for now, will increase her BiPAP to 20/14 2. Metastatic cholangiocarcinoma - Not much to offer in way of treatment, will likely not tolerate any procedures - Per oncology her tumor markers had been improving with therapy - c/s to oncology 3. DM2 - Hold glipizide and metformin - Accuchecks and SSI - BG 135 4. Hypothyroidism - stable - C/w synthroid 5. Depression -continue home Celexa regimen. - Stable 6. GERD - stable - continue PPI. 7. Hypokalemia to 3.3 - will replace DVT: Lovenox sc. CODE STATUS-DNR CCA. Code Visit Inpatient E&M: 62784 Subs Hosp L2
--- NOTE | 2018-02-17 17:05 | CHAPLAIN ---
Type of Pastoral Visit _x__ Initial Visit ___ Follow-up Visit ___ On-call Visit ___ General Patient Visit ___ Spiritual Assessment ___ Family Conference ___ Bereavement ___ Rapid Response ___ Code Blue ___ Other (describe below) Pastoral Care Referral From _x__ Patient _x__ Family ___ Nurse _x__ Physician ___ Head Resident ___ Children'S Ministry Director ___ Other (describe below) Sacrament/Intervention ___ Active listening ___ Anointing ___ Buddhism ___ Bereavement ___ Communion ___ Candida exploration ___ ___ Life review _x__ Prayer ___ Reconciliation ___ Sacrament of Sick _x__ Supportive presence ___ Wedding ___ Other (describe below) Pastoral Comments three sisters gathered in room; offer of support and presence given; prayer given; pt did open her eyes and acknowledge athletic equipment custodian; welcomed presence and prayer but said she is very tired
--- NOTE | 2018-02-17 17:15 | PN_ITS ---
Patient Problems: Active and Suspected Problems Neutropenic fever (Acute) Acute respiratory failure with hypoxia (Acute) Bacteremia due to Escherichia coli (Acute) Subjective: She is extremely SOB and does not tolerate not being off the BiPAP. She appears lethargic and is unable to keep her eyes open Vitals/I&O's: Vital Signs Temp Pulse Resp BP Pulse Ox 98 F 94 36 H 84/53 L 94 02/17/18 16:00 02/17/18 16:00 02/17/18 16:00 02/17/18 16:00 02/17/18 16:00 Oxygen Flow Rate (L/min) 12 Oxygen Delivery Method Bi-pap Weight: 169 lb 15.622 oz Body Mass Index (BMI) 32.1 Intake and Output for Last 24 Hours 02/15/18 02/16/18 02/17/18 23:59 23:59 23:59 Intake Total 3023 / 3023 3215 / 3215 626 / 626 Output Total 325 / 325 1100 / 1100 1950 / 1950 Balance 2698 / 2698 2115 / 2115 -1324 / -1324 General: Cooperative, Lethargic HEENT: Atraumatic, EOMI, Normocephalic Oral: Moist Mucosa Neck: Supple, No JVD Lungs: Clear to auscultation, No rhonchi, No wheeze, No rales, Diminished, Tachypneic Cardiovascular: Regular Rhythm, Normal S1, Normal S2, No murmurs, Tachycardic Abdomen: Soft, Non Tender, Non-Distended, Obese Extremities: Capillary Refill Less than 3 Seconds, Edema Skin: No rashes, No breakdown Neurological: Neuro grossly intact, Sensory exam intact to light touch and pain Microbiology Past 72 Hours 02/15/18 13:15 Urine Catheter - Catheter Urine Culture - Preliminary Culture exhibits no growth. 02/15/18 13:20 Blood Culture (Wb) - Anticubital Right Blood Culture - Preliminary Escherichia coli 02/15/18 12:55 Blood Culture (Wb) - Venous Blood Culture - Preliminary GNR lactose grinder watch parts Laboratory Results 02/15/18 12:55: Diff Path Review Reviewed 02/16/18 06:54: Diff Path Review Reviewed 02/16/18 16:54: POC Glucose 284 H 02/16/18 22:40: POC Glucose 246 H 02/17/18 06:41: POC Glucose 145 H 02/17/18 08:57: WBC 2.9 L, RBC 3.32 L, Hgb 9.7 L, Hct 29.5 L, MCV 88.9, MCH 29.2, MCHC 32.9, RDW 18.0 H, RDW Differential 56.1 H, Plt Count 119 L, MPV 10.2 02/17/18 08:57: Sodium 132 L, Potassium 3.3 L, Chloride 100, Carbon Dioxide 22.0, Anion Gap 10, BUN 12, Creatinine 0.78, Estim Creat Clear Calc 40.07, Est GFR (MDRD) Af Amer 94, Est GFR (MDRD) Non-Af 78, BUN/Creatinine Ratio 15.4, Glucose 135 H, Calcium 6.8 L, Magnesium 1.0 L, Total Bilirubin 3.90 H, AST 134 H , ALT 52, Alkaline Phosphatase 383 H, Total Protein 5.8 L, Albumin 1.2 L, Globulin 4.6 H, Albumin/Globulin Ratio 0.3 L 02/17/18 11:34: Specimen Type ART, Sample Site L Radial, pH 7.42, Bicarbonate Actual 21.6 L, POC Total CO2 23, Base Excess -3 L, O2 Saturation 91 L, O2 % 80, ABG pCO2 33.4 L, ABG pO2 59 L, Luis Fernando Test POS, Respiration Rate 12, O2 Delivery Device Bi / C PAP, EPAP 10, IPAP 16, Blood Gas Notified Whom ICU MD, Blood Gas Notified Time 1115 02/17/18 12:32: POC Glucose 104 02/17/18 16:06: POC Glucose 98 Current Medications Citalopram Hydrobromide (Celexa) 20 mg PO DAILY [facility] Last Admin: 02/17/18 12:26 Dose: Not Given Dextrose (D50w Syringe) 0 gm IV X1 PRN; Protocol PRN Reason: Hypoglycemia Last Admin: 02/15/18 17:36 Dose: 25 gm Gabapentin (Neurontin) 300 mg PO TIDCM [facility] Last Admin: 02/17/18 12:26 Dose: Not Given Glucagon () 1 mg IM .X1 PRN PRN Reason: Hypoglycemia Heparin Sodium (Beef Lung) () 50 units IV UD PRN PRN Reason: HEPARIN FLUSH Meropenem 1 gm/ Sodium (Chloride) 120 mls @ 33 mls/hr IV Q12 [facility] Last Admin: 02/17/18 10:29 Dose: 33 mls/hr Insulin Human Lispro (Humalog Kwikpen (Bkc)) 0 unit SC ACHS [facility]; Protocol Last Admin: 02/17/18 12:36 Dose: Not Given Levothyroxine Sodium (Synthroid) 75 mcg PO DAILY@0600 [facility] Last Admin: 02/17/18 05:43 Dose: Not Given Morphine Sulfate () 1 - 2 mg IV Q4H PRN PRN PRN Reason: pain, dyspnea Last Admin: 02/17/18 04:20 Dose: 2 mg Nutritional Formula (Lactose Free) (Glucerna Shake) 120 ml PO 4X/DAY [facility] Last Admin: 02/17/18 14:51 Dose: Not Given Ondansetron HCl (Zofran) 4 mg IV Q8H PRN PRN PRN Reason: Nausea Ondansetron HCl (Zofran Odt) 4 mg PO DAILY [facility] Last Admin: 02/17/18 12:27 Dose: Not Given Pantoprazole Sodium (Protonix) 40 mg PO DAILY [facility] Last Admin: 02/17/18 12:27 Dose: Not Given Sodium Chloride () 10 ml IV UD PRN PRN Reason: VAD FLUSH Last Admin: 02/17/18 04:45 Dose: 10 ml Medical Necessity - Tobacco Use Smoking Status: Never smoker Tobacco Use: - Assessment/Plan All Active Problems Neutropenic fever (Acute) Acute respiratory failure with hypoxia (Acute) Bacteremia due to Escherichia coli (Acute) 1. Neutropenic fever, etiology unclear/Acute Hypoxia 2/2 ARDS/Hypotension - UA unremarkable. -CXR without evidence of infiltrate, CT chest shows air collection in the right lobe of the liver - Blood cx with ESBL, c/w meropenem - C/s to ID - Continue to hold IVF and lasix for now, will increase her BiPAP to 20/14 2. Metastatic cholangiocarcinoma - Not much to offer in way of treatment, will likely not tolerate any procedures - Per oncology her tumor markers had been improving with therapy - c/s to oncology 3. DM2 - Hold glipizide and metformin - Accuchecks and SSI - BG 135 4. Hypothyroidism - stable - C/w synthroid 5. Depression -continue home Celexa regimen. - Stable 6. GERD - stable - continue PPI. 7. Hypokalemia to 3.3 - will replace DVT: Lovenox sc. CODE STATUS-DNR CCA. Code Visit Inpatient E&M: 14943 Subs Hosp L2
[2018-02-17 22:26] LABS: Bedside Glucose 81 mg/dL (70-110)
[2018-02-18] VITALS: BP 87/51; PULSE 93; RESP 19; TEMP 37.2; O2SAT 79
--- NOTE | 2018-02-18 00:10 | NURSING ---
spoke with family about patient's oxygen level. patient was satting 93-94% on 100% bipap while laying on her right side. BOTTOM WHEELER repositioned patient onto her left side and patient started desatting into the mid 70s-low 80s. patient stayed desatting for awhile so BOTTOM WHEELER and I went back into room to reposition patient on back and boost her up in bed to see if that would help bring her sats back up. medical attendant called RT Natalya to see if we could adjust patient's bipap settings at all. Per Natalya, she stated that the patient was maxed out on settings and that we could not increase them any more. The only other option would be to intubate patient. Since patient is a DNR-CCA. I went back in and spoke with family about their wishes to make sure they still did not want any intubation. I explained to them about the patient's oxygen sats and explained that the patient was maxed out on the bipap settings so I wanted to make sure the game plan was to not intubate. Daughter was at bedside and stated that her mother's wishes were to not be intubated and that she wanted to honor her mother's wishes. I clarified with family and they do not want patient intubated. Therefore, I explained to them that we would reposition patient back on her right side since that was the side she seemed to sat the best on and no longer turn her throughout the night; and if the oxygen sats continued to drop, I would notify the doctor but we would not do anything since they did not want intubation. They agreed and are okay with the plan. I will continue to monitor patient's oxygen sats.
[2018-02-18 01:00] VITALS: BP 92/59; PULSE 100; RESP 30; TEMP 36.9; O2SAT 68
[2018-02-18 01:05] VITALS: PULSE 98; RESP 12; RESP 38; O2SAT 75
[2018-02-18] MEDS: Morphine 2 MG/ML Syringe 1 MG IV (01:23)
[2018-02-18 02:00] VITALS: BP 104/72; PULSE 70; RESP 34; TEMP 36.7; O2SAT 66
[2018-02-18] MEDS: Morphine 2 MG/ML Syringe IV (02:32)
[2018-02-18] MEDS: 0.9% NaCl VAD Flush 10 ML IV (02:32)
--- NOTE | 2018-02-18 02:56 | PCM.PN.HOSP ---
Patient Problems: Active and Suspected Problems Neutropenic fever (Acute) Acute respiratory failure with hypoxia (Acute) Bacteremia due to Escherichia coli (Acute) Vitals/I&O's: Vital Signs Temp Pulse Resp BP Pulse Ox 98.5 F 98 38 H 92/59 L 75 02/18/18 01:00 02/18/18 01:05 02/18/18 01:05 02/18/18 01:00 02/18/18 01:05 Oxygen Flow Rate (L/min) 12 Oxygen Delivery Method Bi-pap Weight: 169 lb 15.622 oz Body Mass Index (BMI) 32.1 Intake and Output for Last 24 Hours 02/16/18 02/17/18 02/18/18 23:59 23:59 23:59 Intake Total 3215 / 3215 1498.5 / 1498.5 Output Total 1100 / 1100 2175 / 2175 Balance 2115 / 2115 -676.5 / -676.5 Microbiology Past 72 Hours 02/15/18 13:15 Urine Catheter - Catheter Urine Culture - Preliminary Culture exhibits no growth. 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 Laboratory Results 02/15/18 12:55: Diff Path Review Reviewed 02/16/18 06:54: Diff Path Review Reviewed 02/17/18 06:41: POC Glucose 145 H 02/17/18 08:57: WBC 2.9 L, RBC 3.32 L, Hgb 9.7 L, Hct 29.5 L, MCV 88.9, MCH 29.2, MCHC 32.9, RDW 18.0 H, RDW Differential 56.1 H, Plt Count 119 L, MPV 10.2 02/17/18 08:57: Sodium 132 L, Potassium 3.3 L, Chloride 100, Carbon Dioxide 22.0, Anion Gap 10, BUN 12, Creatinine 0.78, Estim Creat Clear Calc 40.07, Est GFR (MDRD) Af Amer 94, Est GFR (MDRD) Non-Af 78, BUN/Creatinine Ratio 15.4, Glucose 135 H, Calcium 6.8 L, Magnesium 1.0 L, Total Bilirubin 3.90 H, AST 134 H, ALT 52, Alkaline Phosphatase 383 H, Total Protein 5.8 L, Albumin 1.2 L, Globulin 4.6 H, Albumin/Globulin Ratio 0.3 L 02/17/18 11:34: Specimen Type ART, Sample Site L Radial, pH 7.42, Bicarbonate Actual 21.6 L, POC Total CO2 23, Base Excess -3 L, O2 Saturation 91 L, O2 % 80, ABG pCO2 33.4 L, ABG pO2 59 L, Luis Fernando Test POS, Respiration Rate 12, O2 Delivery Device Bi / C PAP, EPAP 10, IPAP 16, Blood Gas Notified Whom ICU MD, Blood Gas Notified Time 1115 02/17/18 12:32: POC Glucose 104 02/17/18 16:06: POC Glucose 98 02/17/18 22:04: POC Glucose 81 Current Medications Citalopram Hydrobromide (Celexa) 20 mg PO DAILY [facility] Last Admin: 02/17/18 12:26 Dose: Not Given Dextrose (D50w Syringe) 0 gm IV X1 PRN; Protocol PRN Reason: Hypoglycemia Last Admin: 02/15/18 17:36 Dose: 25 gm Gabapentin (Neurontin) 300 mg PO TIDCM [facility] Last Admin: 02/17/18 17:07 Dose: Not Given Glucagon () 1 mg IM .X1 PRN PRN Reason: Hypoglycemia Heparin Sodium (Beef Lung) () 50 units IV UD PRN PRN Reason: HEPARIN FLUSH Meropenem 1 gm/ Sodium (Chloride) 120 mls @ 33 mls/hr IV Q12 [facility] Last Admin: 02/17/18 22:09 Dose: 33 mls/hr Hetastarch/Sodium Chloride (Hespan) 1,000 mls @ 125 mls/hr IV .Q8H ONE Stop: 02/18/18 07:06 Last Admin: 02/17/18 23:46 Dose: 125 mls/hr Insulin Human Lispro (Humalog Kwikpen (Bkc)) 0 unit SC ACHS [facility]; Protocol Last Admin: 02/17/18 22:09 Dose: Not Given Levothyroxine Sodium (Synthroid) 75 mcg PO DAILY@0600 [facility] Last Admin: 02/17/18 05:43 Dose: Not Given Morphine Sulfate () 1 - 2 mg IV Q4H PRN PRN PRN Reason: pain, dyspnea Last Admin: 02/18/18 02:32 Dose: 1 mg Nutritional Formula (Lactose Free) (Glucerna Shake) 120 ml PO 4X/DAY [facility] Last Admin: 02/17/18 21:48 Dose: Not Given Ondansetron HCl (Zofran) 4 mg IV Q8H PRN PRN PRN Reason: Nausea Ondansetron HCl (Zofran Odt) 4 mg PO DAILY [facility] Last Admin: 02/17/18 12:27 Dose: Not Given Pantoprazole Sodium (Protonix) 40 mg PO DAILY [facility] Last Admin: 02/17/18 12:27 Dose: Not Given Sodium Chloride () 10 ml IV UD PRN PRN Reason: VAD FLUSH Last Admin: 02/18/18 02:32 Dose: 10 ml Medical Necessity - Tobacco Use Smoking Status: Never smoker Tobacco Use: - Assessment/Plan All Active Problems Neutropenic fever (Acute) Acute respiratory failure with hypoxia (Acute) Bacteremia due to Escherichia coli (Acute) ABSENCE OF VITALS 2:40 AM PER DISCUSSION EARLIER WITH DAUGHTER PT WAS IN RESP FAILURE DESPITE BIPAP END STAGE CANCER DIAGNOSIS AND DID NOT WANT INTUBATION OK TO RELEASE BODY TO HOME
--- NOTE | 2018-02-18 02:59 | PN_ITS ---
Patient Problems: Active and Suspected Problems Neutropenic fever (Acute) Acute respiratory failure with hypoxia (Acute) Bacteremia due to Escherichia coli (Acute) Vitals/I&O's: Vital Signs Temp Pulse Resp BP Pulse Ox 98.5 F 98 38 H 92/59 L 75 02/18/18 01:00 02/18/18 01:05 02/18/18 01:05 02/18/18 01:00 02/18/18 01:05 Oxygen Flow Rate (L/min) 12 Oxygen Delivery Method Bi-pap Weight: 169 lb 15.622 oz Body Mass Index (BMI) 32.1 Intake and Output for Last 24 Hours 02/16/18 02/17/18 02/18/18 23:59 23:59 23:59 Intake Total 3215 / 3215 1498.5 / 1498.5 Output Total 1100 / 1100 2175 / 2175 Balance 2115 / 2115 -676.5 / -676.5 Microbiology Past 72 Hours 02/15/18 13:15 Urine Catheter - Catheter Urine Culture - Preliminary Culture exhibits no growth. 02/15/18 13:20 Blood Culture (Wb) - Anticubital Right Blood Culture - Preliminary Escherichia coli 02/15/18 12:55 Blood Culture (Wb) - Venous Blood Culture - Preliminary GNR lactose intelligence consultant Laboratory Results 02/15/18 12:55: Diff Path Review Reviewed 02/16/18 06:54: Diff Path Review Reviewed 02/17/18 06:41: POC Glucose 145 H 02/17/18 08:57: WBC 2.9 L, RBC 3.32 L, Hgb 9.7 L, Hct 29.5 L, MCV 88.9, MCH 29.2, MCHC 32.9, RDW 18.0 H, RDW Differential 56.1 H, Plt Count 119 L, MPV 10.2 02/17/18 08:57: Sodium 132 L, Potassium 3.3 L, Chloride 100, Carbon Dioxide 22.0, Anion Gap 10, BUN 12, Creatinine 0.78, Estim Creat Clear Calc 40.07, Est GFR (MDRD) Af Amer 94, Est GFR (MDRD) Non-Af 78, BUN/Creatinine Ratio 15.4, Glucose 135 H, Calcium 6.8 L, Magnesium 1.0 L, Total Bilirubin 3.90 H, AST 134 H , ALT 52, Alkaline Phosphatase 383 H, Total Protein 5.8 L, Albumin 1.2 L, Globulin 4.6 H, Albumin/Globulin Ratio 0.3 L 02/17/18 11:34: Specimen Type ART, Sample Site L Radial, pH 7.42, Bicarbonate Actual 21.6 L, POC Total CO2 23, Base Excess -3 L, O2 Saturation 91 L, O2 % 80, ABG pCO2 33.4 L, ABG pO2 59 L, Luis Fernando Test POS, Respiration Rate 12, O2 Delivery Device Bi / C PAP, EPAP 10, IPAP 16, Blood Gas Notified Whom ICU MD, Blood Gas Notified Time 1115 02/17/18 12:32: POC Glucose 104 02/17/18 16:06: POC Glucose 98 02/17/18 22:04: POC Glucose 81 Current Medications Citalopram Hydrobromide (Celexa) 20 mg PO DAILY [facility] Last Admin: 02/17/18 12:26 Dose: Not Given Dextrose (D50w Syringe) 0 gm IV X1 PRN; Protocol PRN Reason: Hypoglycemia Last Admin: 02/15/18 17:36 Dose: 25 gm Gabapentin (Neurontin) 300 mg PO TIDCM [facility] Last Admin: 02/17/18 17:07 Dose: Not Given Glucagon () 1 mg IM .X1 PRN PRN Reason: Hypoglycemia Heparin Sodium (Beef Lung) () 50 units IV UD PRN PRN Reason: HEPARIN FLUSH Meropenem 1 gm/ Sodium (Chloride) 120 mls @ 33 mls/hr IV Q12 [facility] Last Admin: 02/17/18 22:09 Dose: 33 mls/hr Hetastarch/Sodium Chloride (Hespan) 1,000 mls @ 125 mls/hr IV .Q8H ONE Stop: 02/18/18 07:06 Last Admin: 02/17/18 23:46 Dose: 125 mls/hr Insulin Human Lispro (Humalog Kwikpen (Bkc)) 0 unit SC ACHS [facility]; Protocol Last Admin: 02/17/18 22:09 Dose: Not Given Levothyroxine Sodium (Synthroid) 75 mcg PO DAILY@0600 [facility] Last Admin: 02/17/18 05:43 Dose: Not Given Morphine Sulfate () 1 - 2 mg IV Q4H PRN PRN PRN Reason: pain, dyspnea Last Admin: 02/18/18 02:32 Dose: 1 mg Nutritional Formula (Lactose Free) (Glucerna Shake) 120 ml PO 4X/DAY [facility] Last Admin: 02/17/18 21:48 Dose: Not Given Ondansetron HCl (Zofran) 4 mg IV Q8H PRN PRN PRN Reason: Nausea Ondansetron HCl (Zofran Odt) 4 mg PO DAILY [facility] Last Admin: 02/17/18 12:27 Dose: Not Given Pantoprazole Sodium (Protonix) 40 mg PO DAILY [facility] Last Admin: 02/17/18 12:27 Dose: Not Given Sodium Chloride () 10 ml IV UD PRN PRN Reason: VAD FLUSH Last Admin: 02/18/18 02:32 Dose: 10 ml Medical Necessity - Tobacco Use Smoking Status: Never smoker Tobacco Use: - Assessment/Plan All Active Problems Neutropenic fever (Acute) Acute respiratory failure with hypoxia (Acute) Bacteremia due to Escherichia coli (Acute) ABSENCE OF VITALS 2:40 AM PER DISCUSSION EARLIER WITH DAUGHTER PT WAS IN RESP FAILURE DESPITE BIPAP END STAGE CANCER DIAGNOSIS AND DID NOT WANT INTUBATION OK TO RELEASE BODY TO HOME
[2018-02-18 07:10] LABS: Bedside Glucose 147 mg/dL (70-110)
[2018-02-18 07:10] LABS: Bedside Glucose 28 mg/dL (70-110)
== END 2018-02-18 02:40 | DRG 808 ==
LOC: ED 15:45 → MS3 15:50 → PCU 02-17 10:13
PROVIDERS: Family Medicine; Student in an Organized Health Care Education/Training Program; Admitting Provider Internal Medicine; Emergency Provider Emergency Medicine; Family Provider Family Medicine; PCP Family Medicine; Visit Provider Family Medicine
DX: D70.9 Neutropenia, unspecified (principal); A41.51 Sepsis due to Escherichia coli [E. coli]; J80 Acute respiratory distress syndrome; R65.20 Severe sepsis without septic shock; E87.2 Acidosis; C23 Malignant neoplasm of gallbladder; C78.7 Secondary malignant neoplasm of liver and intrahepatic bile duct; R50.81 Fever presenting with conditions classified elsewhere; E11.9 Type 2 diabetes mellitus without complications; E03.9 Hypothyroidism, unspecified; G47.33 Obstructive sleep apnea (adult) (pediatric); F32.9 Major depressive disorder, single episode, unspecified; K21.9 Gastro-esophageal reflux disease without esophagitis; Z79.899 Other long term (current) drug therapy; Z79.84 Long term (current) use of oral hypoglycemic drugs; Z66 Do not resuscitate; T45.1X5A Adverse effect of antineoplastic and immunosuppressive drugs, initial encounter; R53.1 Weakness; G62.0 Drug-induced polyneuropathy; E78.5 Hyperlipidemia, unspecified; E87.6 Hypokalemia; I95.9 Hypotension, unspecified
CPT/HCPCS: 36415; 36600; 51702; 71045; 71275; 74176; 80053; 81001; 82803; 82962; 83605; 83735; 85025; 85027; 85610; 85730; 87040; 87077; 87086; 87186; 93005; 94002; 94003; 97162; 97166; 97802; 99284; J2185; J7030; Q9967; A4216; J1447; J1940; J7799